=== PATIENT | female | born 1985 | race Caucasian/White ===

== ENCOUNTER → 2017-07-15 | Outpatient (REF) | payer BC | LOC: M LAB REF 16:57 | DX: L90.0 Lichen sclerosus et atrophicus (principal) | CPT/HCPCS: 87077 ==

== ENCOUNTER → 2017-08-01 | Outpatient (REF) | payer BC | LOC: M LAB REF 16:50 | DX: Z12.4 Encounter for screening for malignant neoplasm of cervix (principal) | CPT/HCPCS: G0123 ==

== ENCOUNTER → 2017-10-25 | Outpatient (CLI) | payer BC ==
[2017-10-25 07:30] LABS: HCG, SERUM QUANTITATIVE 147 MIU/ML
[2017-10-25 11:43] LABS: PROGESTERONE 10.5 NG/ML
== END ==
LOC: M LAB 06:28
DX: Z32.00 Encounter for pregnancy test, result unknown (principal)

== ENCOUNTER → 2017-10-28 | Outpatient (CLI) | payer BC ==
[2017-10-28 07:10] LABS: HCG, SERUM QUANTITATIVE 428 MIU/ML
== END ==
LOC: M LAB 06:20
DX: O09.02 Supervision of pregnancy with history of infertility, second trimester (principal); Z3A.00 Weeks of gestation of pregnancy not specified
CPT/HCPCS: 84702

== ENCOUNTER 2017-11-14 10:01 | Emergency (ER) | payer BC ==
[2017-11-14 10:54] LABS: BASO % 0.4 % (0.0-1.0); EOS # 0.2 10^3/uL (0.0-0.50); EOS % 2.4 % (0.0-3.0); HEMATOCRIT 39.5 % (36.0-47.0); HEMOGLOBIN 13.6 g/dl (12.0-15.5); IMMATURE GRANULOCYTE % 0.3 % (0-3.0); LYMPH # 2.3 10^3/uL (1.5-4.5); LYMPH % 31.1 % (24.0-44.0); MEAN CORPUSCULAR HEMOGLOBIN 29.8 pg (27.0-33.0); MEAN CORPUSCULAR HGB CONC 34.4 g/dl (32.0-36.5); MEAN CORPUSCULAR VOLUME 86.6 fl (80.0-96.0); MONO # 0.4 10^3/uL (0.0-0.8); MONO % 5.1 % (0.0-5.0); NEUTROPHILS # 4.5 10^3/uL (1.8-7.7); NEUTROPHILS % 60.7 % (36.0-66.0); PLATELET COUNT, AUTOMATED 227 10^3/uL (150-450); RED BLOOD COUNT 4.56 10^6/uL (4.00-5.40); WHITE BLOOD COUNT 7.4 10^3/uL (4.0-10.0)
[2017-11-14 11:08] LABS: KETONE, URINE AUTO RFX NEGATIVE (NEGATIVE); LEUKOCYTE ESTERASE UR AUTO RFX NEGATIVE (NEGATIVE); NITRITE, URINE AUTO RFX NEGATIVE (NEGATIVE); RBC, URINE AUTO RFX 7 /HPF (0-3); SPECIFIC GRAVITY UR AUTO RFX 1.006 (1.002-1.035); SQUAM EPITHELIAL CELL UR AURFX 1 /HPF (0-6); WBC, URINE AUTO RFX 3 /HPF (0-3)
[2017-11-14] MEDS: NS 1,000 ML IV (11:27)
[2017-11-14 11:34] LABS: HCG, SERUM QUANTITATIVE 15573 MIU/ML
== END 2017-11-14 12:21 | disposition home or self-care (01) ==
LOC: M ED 10:01
DX: O20.8 Other hemorrhage in early pregnancy (principal); Z3A.01 Less than 8 weeks gestation of pregnancy; Z79.890 Hormone replacement therapy; Z88.0 Allergy status to penicillin
CPT/HCPCS: 76801

== ENCOUNTER → 2017-11-15 | Outpatient (CLI) | payer BC ==
[2017-11-15 14:34] LABS: RUBELLA IgG QUALITATIVE IMMUNE (IMMUNE)
[2017-11-15 14:36] LABS: HBsAg Prenatal NEGATIVE (NEGATIVE)
[2017-11-15 15:03] LABS: HEPATITIS C VIRUS ABY INDEX 0.1 INDEX (<0.8)
[2017-11-15 15:04] LABS: HIV 1&2 SCREEN CENTAUR NEGATIVE (NEGATIVE)
[2017-11-15 15:37] LABS: BASO % 0.4 % (0.0-1.0); EOS # 0.1 10^3/uL (0.0-0.50); EOS % 1.5 % (0.0-3.0); HEMATOCRIT 41.8 % (36.0-47.0); IMMATURE GRANULOCYTE % 0.1 % (0-3.0); LYMPH # 1.9 10^3/uL (1.5-4.5); LYMPH % 28.1 % (24.0-44.0); MEAN CORPUSCULAR HEMOGLOBIN 29.5 pg (27.0-33.0); MEAN CORPUSCULAR HGB CONC 33.5 g/dl (32.0-36.5); MEAN CORPUSCULAR VOLUME 88.2 fl (80.0-96.0); MONO # 0.3 10^3/uL (0.0-0.8); MONO % 4.8 % (0.0-5.0); NEUTROPHILS # 4.5 10^3/uL (1.8-7.7); NEUTROPHILS % 65.1 % (36.0-66.0); PLATELET COUNT, AUTOMATED 283 10^3/uL (150-450); RED BLOOD COUNT 4.74 10^6/uL (4.00-5.40); RED CELL DISTRIBUTION WIDTH 12.1 % (11.5-14.5); WHITE BLOOD COUNT 6.9 10^3/uL (4.0-10.0)
[2017-11-15 15:57] LABS: CHLAMYDIA DNA AMPLIFICATION NEGATIVE (NEGATIVE); GC DNA AMPLIFICATION NEGATIVE (NEGATIVE)
== END ==
LOC: M SMT 10:52
DX: Z34.81 Encounter for supervision of other normal pregnancy, first trimester (principal); Z3A.01 Less than 8 weeks gestation of pregnancy
CPT/HCPCS: 86762

== ENCOUNTER → 2018-01-05 | Outpatient (REF) | payer BC | LOC: M LAB REF 11:14 | DX: J02.9 Acute pharyngitis, unspecified (principal) | CPT/HCPCS: 87070 ==

== ENCOUNTER → 2018-02-10 | Outpatient (CLI) | payer BC | LOC: M RAD 17:03 | DX: Z34.82 Encounter for supervision of other normal pregnancy, second trimester (principal); Z36.89 Encounter for other specified antenatal screening; Z3A.20 20 weeks gestation of pregnancy | CPT/HCPCS: 76811 ==

== ENCOUNTER → 2018-04-07 | Outpatient (CLI) | payer BC ==
[2018-04-07 13:17] LABS: BASO % 0.4 % (0.0-1.0); EOS # 0.2 10^3/uL (0.0-0.50); EOS % 1.9 % (0.0-3.0); HEMATOCRIT 36.6 % (36.0-47.0); HEMOGLOBIN 11.9 g/dl (12.0-15.5); IMMATURE GRANULOCYTE % 0.6 % (0-3.0); LYMPH # 1.6 10^3/uL (1.5-4.5); LYMPH % 19.6 % (24.0-44.0); MEAN CORPUSCULAR HEMOGLOBIN 30.4 pg (27.0-33.0); MEAN CORPUSCULAR HGB CONC 32.5 g/dl (32.0-36.5); MEAN CORPUSCULAR VOLUME 93.6 fl (80.0-96.0); MONO # 0.4 10^3/uL (0.0-0.8); MONO % 4.6 % (0.0-5.0); NEUTROPHILS # 5.9 10^3/uL (1.8-7.7); NEUTROPHILS % 72.9 % (36.0-66.0); PLATELET COUNT, AUTOMATED 245 10^3/uL (150-450); RED BLOOD COUNT 3.91 10^6/uL (4.00-5.40); RED CELL DISTRIBUTION WIDTH 13.3 % (11.5-14.5)
[2018-04-07 13:51] LABS: GLUCOSE CHALLENGE TEST 1 HOUR 92 MG/DL (LESS THAN 140)
== END ==
LOC: M SMT 08:51
DX: Z36.89 Encounter for other specified antenatal screening (principal)
CPT/HCPCS: 82950

== ENCOUNTER → 2018-06-06 | Outpatient (REF) | payer BC ==
[~2018-06-06] MED LIST: ENDO100S PV; ESTR1TAB PO
== END ==
LOC: M LAB REF 17:13
PROVIDERS: ATTEND Advanced Practice Midwife
DX: O09.813 Supervision of pregnancy resulting from assisted reproductive technology, third trimester (principal)

== ENCOUNTER → 2018-06-09 | Outpatient (CLI) | payer BC ==
[~2018-06-09] MED LIST changes: +PREN1TAB26 PO
--- NOTE | 2018-06-10 05:02 | REP ---
Clinical: Anatomical evaluation. Comparison: 02/10/2018 . Findings: Examination demonstrates a single live intrauterine in cephalic presentation. motion is identified by technologist. Placenta is noted left fundal and grade grade II without evidence for placenta previa or abruption. Amniotic fluid volume is normal. Cervix measures appears closed. No evidence for nuchal cord. Gestational age by LMP 36 weeks 3 days with F[place]ON 07/04/2018 . Gestational age by current measurements 37 weeks 5 days with F[place]ON 13 19 . FHR equals 165 beats per minute. Estimated weight 3500 grams ( 89th percentile). Umbilical cord SD ratio: 2.13. Anatomical assessment demonstrates small bilateral hydroceles. Impression: Single live intrauterine in cephalic presentation demonstrating appropriate interval growth. Small bilateral hydroceles are noted which may warrant follow-up to evaluate for possible inguinal hernia. Electronically Signed by Rogerio Richard MD 06/10/2018 04:53 A
== END ==
LOC: M RAD 17:12
PROVIDERS: ATTEND Obstetrics & Gynecology
DX: Z36.89 Encounter for other specified antenatal screening (principal); Z3A.36 36 weeks gestation of pregnancy

== ENCOUNTER 2018-06-27 07:00 | Inpatient (IN) | payer BC ==
[2018-06-27] VITALS (7 sets, daily range): BP systolic 89–128; BP diastolic 56–75
[~2018-06-27] VITALS: Ht 160 cm; Wt 70.5 kg
[2018-06-27] MEDS ORDERED: BICITRA 30ML SOLN UDC PO ONE (07:15)
[2018-06-27] MEDS ORDERED: LR 1,000 ML IV ONE (07:15)
[2018-06-27] MEDS ORDERED: LR 1,000 ML IV SCH ×2 (07:15→11:39)
[2018-06-27] MEDS ORDERED: COLA100C5 PO ×2 (07:19→11:24)
[2018-06-27 07:55] LABS: HEMATOCRIT 38.4 % (36.0-47.0); HEMOGLOBIN 13.2 g/dl (12.0-15.5); MEAN CORPUSCULAR HEMOGLOBIN 31.1 pg (27.0-33.0); MEAN CORPUSCULAR HGB CONC 34.4 g/dl (32.0-36.5); MEAN CORPUSCULAR VOLUME 90.6 fl (80.0-96.0); PLATELET COUNT, AUTOMATED 203 10^3/uL (150-450); RED BLOOD COUNT 4.24 10^6/uL (4.00-5.40); WHITE BLOOD COUNT 8.7 10^3/uL (4.0-10.0)
[2018-06-27] MEDS ORDERED: OXYTOCIN INJ 10 UNITS/ML VIAL (J2590) As Ordered ONE (08:51)
[2018-06-27] MEDS ORDERED: MORPHINE PRES-FREE INJ 10 MG/10 ML VIAL (J2274) As Ordered ONE (08:51)
[2018-06-27] MEDS ORDERED: BUPIVACAINE/DEXTROSE 0.75% 2 ML AMP As Ordered ONE (08:54)
[2018-06-27] MEDS ORDERED: MONI1CRE2 PV (08:57)
[2018-06-27] MEDS ORDERED: NALBUPHINE HCL 10 MG/ML AMP (J2300) IV PRN (09:45)
[2018-06-27] MEDS ORDERED: diphenhydrAMINE INJ 50MG/ML VIAL (J1200) IV PRN (09:45)
[2018-06-27] MEDS ORDERED: ONDANSETRON 4MG/2ML VIAL (J2405) IV PRN ×2 (09:45→11:45)
[2018-06-27] MEDS ORDERED: NALOXONE INJ 0.4 MG/1 ML VIAL (J2310) IV PRN ×2 (09:45)
[2018-06-27] MEDS ORDERED: METOCLOPRAMIDE INJ 10MG/2ML VIAL (J2765) IV PRN (09:45)
[2018-06-27] MEDS ORDERED: KETOROLAC 60 MG/2 ML VIAL (J1885) As Ordered ONE (10:18)
[2018-06-27] MEDS ORDERED: ONDANSETRON 4MG/2ML VIAL (J2405) As Ordered ONE (10:18)
[2018-06-27] MEDS ORDERED: fentaNYL 100 MCG/2 ML INJECTION (J3010) As Ordered ONE (10:26)
--- NOTE | 2018-06-27 11:05 | NUR ---
Operative Note Date of procedure: 06/27/2018 Procedure:, Primary low-transverse section Anesthesia: Spinal with Duramorph Preoperative diagnosis: 39 weeks gestation, history of severe obstetric laceration with protracted recovery Postoperative diagnosis: Same Indication: History of pelvic floor dysfunction after severe obstetric laceration. Patient elected primary low transverse section. Primary surgeon: Darrel Albert D.O., F[employer] Assistant: Kuldip Montes MD, FACOG (essential for surgical site exposure / assistance with delivery) Estimated blood loss:600 ml IV fluids administered: 1700 ml crystalloid Drains: Maier catheter. Urine output:100 ml [place] data: Apgars 9 and 9. Birthweight 3830g, 8lbs 7oz. Male. Preoperative/prophylactic antibiotics: Ancef 2 g IV (given within 30 minutes prior to surgical start time). Intraoperative findings: cephalic presentation. normal uterus and bilateral adnexa / ovaries. Specimen(s): none Procedure: The patient was counseled and consented on the risks, benefits, indications and alternatives of the procedure. Informed consent was obtained and placed in the c leal. She was taken to the operating room with an IV running. She was placed on the operating table. Spinal anesthesia was administered without any difficulty and found to be adequate. She was placed in the dorsal supine position with a leftward tilt. Sequential compression devices were placed on the lower extremities. A Maier catheter was placed under sterile conditions. She was sterilely prepped and draped. A surgical timeout was performed per protocol. Spinal anesthesia was again found to be adequate. Using the 10 blade a Pfannenstiel incision was performed. The 10 blade was used to dissect down to the level of the rectus sheath fascia. The rectus sheath fas ayad was incised at the midline, and the fascial incision was extended with Morse scissors. Joon clamps were used to grasp the superior and inferior aspect of the fascial incision and the rectus muscle bellies were dissected off sharply and bluntly. The midline was identified and the rectus muscle bellies were manually . The peritoneum was identified and clamped with hemostats and elevated. The peritoneum was then incised with Metzenbaum scissors. Entry into the intraperitoneal cavity was achieved. The peritoneal opening was extended with manual stretch . There was good visualization of both the bladder and the lower uterine segment. The bladder retractor was placed. The vesicouterine peritoneum was dissected with Metzenbaum scissors and blunt dissection. Bladder retractor was repositioned. A low transverse uterine incision was made with a new 10 blade. The hysterotomy was extended with manual stretch. The amniotic sac was protruding and then artificially ruptured. Clear amniotic fluid was noted. The baby's head delivered through the hysterotomy with ease. The remainder of the body delivered with ease. The cord was doubly clamped and cut and the baby was handed off to awaiting care. See data above. The placenta was manually removed and noted to be fully intact. The uterus was exteriorized. The intrauterine cavity was cleared of all clot and debris with a laparotomy sponge. The hysterotomy was closed with 0 Vicryl in running, locked fashion. A second imbricating closure was performed over the initial layer closure using 0 Vicryl. The hysterotomy was noted to be hemostatic. The posterior cul-de-sac was irrigated and cleared of all clot and debris. The uterus was replaced back into the abdomen. The paracolic gutters were cleared of all clot and debris with damp laparotomy sponges. The hysterotomy is reinspected and noted to be hemostatic. Sponge, needle and instrument counts were correct. The peritoneum was closed with 3-0 Vicryl in running fashion. The rectus muscle bellies were reapproximated with 3-0 Vicryl with a series of interrupted sutures. The rectus muscle bellies were noted to be hemostatic. The fascia was closed with 0 Vicryl in running fashion. Sponge, needle and instrument counts were again correct. The subcutaneous layer was irrigated. Small subcutaneous bleeders were cauterized with Bovie. The subcutaneous layer was reapproximated with 3-0 Vicryl in running fashion. The skin was closed with 3-0 Monocryl in subcuticular fashion. A bandage was placed over the closed incision. The final sponge, instrument and needle count was correct. She tolerated the entire procedure very well. She was transferred to the PACU in good and stable condition. Dr. Darrel Albert D.O., F.A.Nikita.Devyn.G
[2018-06-27] MEDS ORDERED: PERCOCET 5MG/325MG TAB PO PRN ×3 (11:15→11:45)
[2018-06-27] MEDS ORDERED: fentaNYL 100 MCG/2 ML INJECTION (J3010) IV PRN (11:15)
[2018-06-27] MEDS ORDERED: PERCOCET PO (11:22)
[2018-06-27] MEDS ORDERED: IBUP80TA PO (11:23)
[2018-06-27] MEDS ORDERED: OXYTOCIN DRIP 30 UNITS in APPROPRIATE DILUENT 1 EA IV SCH (11:39)
[2018-06-27] MEDS ORDERED: OXYTOCIN 30 UNITS IN 0.9% NaCl 500ML IV BAG (J2590) As Ordered ONE (11:40)
[2018-06-27] MEDS ORDERED: PROMETHAZINE 25 MG TAB PO PRN (11:45)
[2018-06-27] MEDS ORDERED: MEASLES,MUMPS,RUBELLA VACCINE INJ (MMR-II) (90707) SC SCH (11:45)
[2018-06-27] MEDS ORDERED: RHOGAM 300 MCG (1500 IU) INJ (J2790) IM SCH (11:45)
[2018-06-27] MEDS: PRENATAL VITAMINS CHEWABLE TABLET PO SCH (17:22)
[2018-06-27] MEDS: KETOROLAC 30 MG/ML VIAL (J1885) IV SCH ×2 (17:23→23:21)
[2018-06-27] MEDS: DOCUSATE SODIUM 100 MG CAP PO SCH (21:00)
[2018-06-28] VITALS (7 sets, daily range): BP systolic 98–115; BP diastolic 54–70
[2018-06-28] MEDS: KETOROLAC 30 MG/ML VIAL (J1885) IV SCH (05:12)
--- NOTE | 2018-06-28 06:47 | IPNPDOC ---
Text Note Date of Service The patient was seen on 06/28/18. NOTE PO #1 Feels well. Adequate pain management. . OOB independently. Voiding VSS, afebrile, normotensive Breasts soft, nipples intact Fundus firm Dressing intact Lochia rubra light without odor PO #1 Routine care. Anticipate D/C evelyn VS,Fishbone, I+O VS, Fishbone, I+O Laboratory Tests 06/27/18 07:46 Red Blood Count 4.24, Mean Corpuscular Volume 90.6, Mean Corpuscular Hemoglobin 31.1, Mean Corpuscular Hemoglobin Concent 34.4, Red Cell Distribution Width 13.0 Vital Signs Date Time Temp Pulse Resp B/P (MAP) Pulse Ox O2 Delivery O2 Flow Rate FiO2 06/28/18 06:10 97.9 66 18 103/62 (76) 95 I&O- Last 24 Hours up to 6 AM 06/28/18 06:00 Intake Total 3368 ml Output Total 1300 ml Balance 2068 ml Sharda Mcgovern CNM Jun 28, 2018 06:47
[2018-06-28 07:21] LABS: HEMATOCRIT 34.6 % (36.0-47.0); HEMOGLOBIN 11.6 g/dl (12.0-15.5); MEAN CORPUSCULAR HEMOGLOBIN 30.5 pg (27.0-33.0); MEAN CORPUSCULAR HGB CONC 33.5 g/dl (32.0-36.5); MEAN CORPUSCULAR VOLUME 91.1 fl (80.0-96.0); PLATELET COUNT, AUTOMATED 175 10^3/uL (150-450); WHITE BLOOD COUNT 11.5 10^3/uL (4.0-10.0)
[2018-06-28] MEDS: DOCUSATE SODIUM 100 MG CAP PO SCH ×2 (09:07→21:05)
[2018-06-28] MEDS: PRENATAL VITAMINS CHEWABLE TABLET PO SCH (09:07)
[2018-06-28] MEDS: IBUPROFEN 800 MG TAB PO SCH ×2 (12:55→21:05)
[2018-06-29 02:14] VITALS: BP_SYST 127; BP_SYST 91; BP_DIAS 56; BP_DIAS 72
[2018-06-29] MEDS: IBUPROFEN 800 MG TAB PO SCH (05:16)
[2018-06-29 05:50] VITALS: BP 108/60
[2018-06-29] MEDS: PRENATAL VITAMINS CHEWABLE TABLET PO SCH (09:00)
[2018-06-29] MEDS: DOCUSATE SODIUM 100 MG CAP PO SCH (09:00)
--- NOTE | 2018-06-30 04:00 | DSES ---
DATE OF ADMISSION: 06/27/2018 DATE OF DISCHARGE: 06/29/2018 DISCHARGE DIAGNOSIS: section for history of pelvic floor dysfunction with severe surgical laceration. DISCHARGE CONDITION: Stable. PROCEDURES PERFORMED WHILE IN HOSPITAL: 1. Spinal anesthesia. 2. section. HISTORY AND HOSPITAL COURSE: Ms. Goldman presented for a scheduled section which was uncomplicated and was productive of a live born male , Apgars 9 and 9, weight was 3830 grams. Estimated blood loss was 600 mL. She did well postoperatively. By postop day #2 had met all discharge criteria. She was discharged home in stable condition. Physical exam on day of discharge: Her vital signs are stable. She was afebrile. General appearance is well appearing in no acute distress. Her abdomen was soft, fundus was below umbilicus. Her incision was dressed. Extremities negative for calf tenderness. DISCHARGE MEDICATION: Ibuprofen and Percocet. DISCHARGE INSTRUCTIONS: 1. She was instructed to follow up in two weeks for incision check. 2. To remain on pelvic rest for six weeks. 3. To report severe pain, heavy vaginal bleeding or a fever.
== END 2018-06-29 11:30 | disposition home or self-care (01) | DRG 540 ==
LOC: M LDI 07:00 → M OBS 12:55
PROVIDERS: ADMIT Obstetrics & Gynecology; ATTEND Obstetrics & Gynecology
PROC: 10D00Z1 Extraction of Products of Conception, Low, Open Approach (ICD-10-PCS; principal; 2018-06-27 09:30)
DX: O99.89 Other specified diseases and conditions complicating pregnancy, childbirth and the puerperium (principal); N94.89 Other specified conditions associated with female genital organs and menstrual cycle; Z37.0 Single live birth; Z3A.39 39 weeks gestation of pregnancy

== ENCOUNTER → 2019-02-23 | Outpatient (CLI) | payer BC ==
[~2019-02-23] MED LIST changes: +COLA100C5 PO; +IBUP80TA PO; +MONI1CRE2 PV; +PERCOCET PO
[2019-02-26 14:07] LABS: HPV HYBRID CAPTURE II Negative (Negative)
== END ==
LOC: M SMT 15:42
PROVIDERS: ATTEND Advanced Practice Midwife
DX: Z12.4 Encounter for screening for malignant neoplasm of cervix (principal)
CPT/HCPCS: 36415; 87624; G0123

== ENCOUNTER → 2020-03-03 | Outpatient (REF) | payer BC | LOC: M SFHCWAGY 13:25 | PROVIDERS: ATTEND Nurse Practitioner Women's Health | DX: N89.8 Other specified noninflammatory disorders of vagina (principal) ==

== ENCOUNTER → 2020-03-15 | Outpatient (REF) | payer BC | LOC: M SFHCWAGY 17:42 | PROVIDERS: ATTEND Obstetrics & Gynecology | DX: Z12.4 Encounter for screening for malignant neoplasm of cervix (principal) ==

== ENCOUNTER → 2020-05-16 | Outpatient (CLI) | payer BC | LOC: M LAB 08:04 | PROVIDERS: ATTEND Obstetrics & Gynecology | DX: Z32.00 Encounter for pregnancy test, result unknown (principal) ==

== ENCOUNTER → 2020-05-18 | Outpatient (CLI) | payer BC ==
[2020-05-18 14:51] LABS: PROGESTERONE 85.3 NG/ML
== END ==
LOC: M LAB 05:57
PROVIDERS: ATTEND Obstetrics & Gynecology
DX: Z31.49 Encounter for other procreative investigation and testing (principal); O09.00 Supervision of pregnancy with history of infertility, unspecified trimester; Z3A.00 Weeks of gestation of pregnancy not specified

== ENCOUNTER → 2020-07-03 | Outpatient (CLI) | payer BC ==
[2020-07-03 09:33] LABS: HEMATOCRIT 36.8 % (36.0-47.0); HEMOGLOBIN 12.3 g/dl (12.0-15.5); MEAN CORPUSCULAR HEMOGLOBIN 30.4 pg (27.0-33.0); MEAN CORPUSCULAR HGB CONC 33.4 g/dl (32.0-36.5); MEAN CORPUSCULAR VOLUME 90.9 fl (80.0-96.0); PLATELET COUNT, AUTOMATED 279 10^3/uL (150-450); RED BLOOD COUNT 4.05 10^6/uL (4.00-5.40); WHITE BLOOD COUNT 8.1 10^3/uL (4.0-10.0)
[2020-07-04 11:16] LABS: HEPATITIS C VIRUS ABY INDEX 0.1 INDEX (<0.8); HIV 1&2 SCREEN CENTAUR NEGATIVE (NEGATIVE)
== END ==
LOC: M LAB 08:40
PROVIDERS: ATTEND Advanced Practice Midwife
DX: Z34.91 Encounter for supervision of normal pregnancy, unspecified, first trimester (principal); Z3A.00 Weeks of gestation of pregnancy not specified

== ENCOUNTER 2020-07-22 16:31 | Emergency (ER) | payer BC ==
[~2020-07-22] VITALS: Ht 162.6 cm; Wt 55.1 kg
--- OUTSIDE RECORDS SUMMARY | 2020-07-22 16:37 | CCD | Continuity of Care Document ---
Author Author China HAYDEN D.Dorcas Organization Unknown Address [address] [place] [address] Phone [phone] Care Team Providers Care Woods Boss Name Role Phone Vandana Hayden D.O. AUTM [phone] Problems Description No Information Available Social History Type Date Description Comments Sex Unknown ETOH Use Drinks 2 Alcoholic Beverages Per Week Tobacco Use Start: Unknown Patient has never smoked Recreational Drug Use Denies Drug Use Exercise Type/Frequency Walks daily Sun Exposure Uses sunscreen Seat Belt/Car Seat Always uses seat belt Allergies, Adverse Reactions, Alerts Active Allergies Reaction Severity Comments Date Amoxicillin Urticaria 07/31/2017 Medications Active Medications SIG Qnty Indications Ordering Provide r Date Plus 27-1mg Tablets 1 by mouth every day 90tabs Vandana Hayden D.O. 08/01 Immunizations Description No Information Available Vital Signs Date Vital Result Comment 12/07/2019 2:23pm BP Systolic 106 mmHg BP Diastolic 64 mmHg Height 64 inches 5'4" Weight 113.00 lb BMI (Body Mass Index) 19.4 kg/m2 Heart Rate 85 /min Respiratory Rate 18 /min Body Temperature 99.3 F O2 % BldC Oximetry 99 % [place] Body Weight 120 lb 08/01/2017 9:14am BP Systolic 104 mmHg BP Diastolic 78 mmHg Height 64 inches 5'4" Weight 121.25 lb BMI (Body Mass Index) 20.8 kg/m2 Heart Rate 86 /min Respiratory Rate 16 /min Body Temperature 98.3 F O2 % BldC Oximetry 98 % [place] Body Weight 120 lb Results Test Acquired Date Facility Test Result H/L Range Note Laboratory test finding 05/18/2020 [facility] (Registration) [address] [place] [address] [phone] Progesterone 85.30 NG/ML Normal 1 HCG, Serum Quantitative 144 MIU/ML Normal 2 Laboratory test finding 05/16/2020 [facility] (Registration) [address] [place] [address] [phone] HCG, Serum Quantitative 68 MIU/ML Normal 3 1 Normal Ranges (ng/ml) Females : FOLLICULAR PHASE 0.15-1.40 LUTEAL PHASE 3.34-25.56 MID-LUTEAL PHASE 4.44-28.03 POST MENOPAUSAL <0.73 Females : 1st TRIMESTER 11.22-90.00 2nd TRIMESTER 25.55-89.40 3rd TRIMESTER 48.40-422.50 2 GESTATIONAL AGE APPROXIMATE HCG RANGE (MIU/ML) - 0.2-1 WEEK 5-50 1-2 WEEKS 50-500 2-3 WEEKS 100-5,000 3-4 WEEKS 500-10,000 4-5 WEEKS 1,000-50,000 5-6 WEEKS 10,000-100,000 6-8 WEEKS 15,000-200,000 2-3 MONTHS 10,000-100,00 0 NON FEMALES LESS THAN 3.0 Patient samples may contain human heterophilic antibodies that could react with immunoassays to give falsely elevated or depressed results. This assay has been designed to minimize interference from heterophilic antibodies. Elevated hCG levels have also been associated with trophoblastic disease and nontrophoblastic neoplasms. The possibility of having these diseases should be considered before a diagnosis of is made. This test is not intended for use as a surrogate marker for aiding in the diagnosis or monitoring the treatment of cancer patients. Siemens Plickers methodology. 3 GESTATIONAL AGE APPROXIMATE HCG RANGE (MIU/ML) - 0.2-1 WEEK 5-50 1-2 WEEKS 50-500 2-3 WEEKS 100-5,000 3-4 WEEKS 500-10,000 4-5 WEEKS 1,000-50,000 5-6 WEEKS 10,000-100,000 6-8 WEEKS 15,000-200,000 2-3 MONTHS 10,000-100,00 0 NON FEMALES LESS THAN 3.0 Patient samples may contain human heterophilic antibodies that could react with immunoassays to give falsely elevated or depressed results. This assay has been designed to minimize interference from heterophilic antibodies. Elevated hCG levels have also been associated with trophoblastic disease and nontrophoblastic neoplasms. The possibility of having these diseases should be considered before a diagnosis of is made. This test is not intended for use as a surrogate marker for aiding in the diagnosis or monitoring the treatment of cancer patients. Siemens Plickers methodology. Procedures Description No Information Available Medical Devices Description No Information Available Encounters Type Date Location Provider Dx Diagnosis Office Visit 12/07/2019 2:20p Family Medicine [facility] JEEVAN Mayen J06.9 Acute upper respiratory infe ction, unspecified Assessments Date Code Description Provider 12/07/2019 J06.9 Acute upper respiratory infectio n, unspecified JEEVAN Mayen Plan of Treatment No Information Available Functional Status Description No Information Available Mental Status Description No Information Available Referrals Description No Information Available
--- OUTSIDE RECORDS SUMMARY | 2020-07-22 16:37 | CCD ---
Author Author [facility] Organization [facility] Address Unknown Phone Unavailable Care Team Providers Care Java Development Team Lead Name Role Phone David Michael PA Unavailable Unavailable David, Michael PA Unavailable Unavailable David, Michael PA Unavailable Unavailable David, Michael PA Unavailable Unavailable David, Michael PA Unavailable Unavailable David, Michael PA Unavailable Unavailable David, Michael PA Unavailable Unavailable David, Michael PA Unavailable Unavailable David, Michael PA Unavailable Unavailable David, Michael PA Unavailable Unavailable David, Michael PA Unavailable Unavailable David, Michael PA Unavailable Unavailable David, Michael PA Unavailable Unavailable David, Michael PA Unavailable Unavailable David, Micheal PA Unavailable Unavailable David, Michael PA Unavailable Unavailable David, Michael PA Unavailable Unavailable David, Michael PA Unavailable Unavailable David, Michael PA Unavailable Unavailable David, Michael PA Unavailable Unavailable David, Michael PA Unavailable Unavailable David, Michael PA Unavailable Unavailable David, Michael PA Unavailable Unavailable David, Michael PA Unavailable Unavailable David, Michael PA Unavailable Unavailable David, Michael PA Unavailable Unavailable David, Michael PA Unavailable Unavailable David, Michael PA Unavailable Unavailable David, Michael PA Unavailable Unavailable David, Michael PA Unavailable Unavailable David, Michael PA Unavailable Unavailable David, Michael PA Unavailable Unavailable David, Michael PA Unavailable Unavailable David, Michael PA Unavailable Unavailable David, Michael PA Unavailable Unavailable David, Michael PA Unavailable Unavailable David, Michael PA Unavailable Unavailable David, Michael PA Unavailable Unavailable David, Michael PA Unavailable Unavailable David, Michael PA Unavailable Unavailable David, Michael PA Unavailable Unavailable David, Michael PA Unavailable Unavailable David, Michael PA Unavailable Unavailable David, Michael PA Unavailable Unavailable David, Michael PA Unavailable Unavailable David, Michael PA Unavailable Unavailable David, Michael PA Unavailable Unavailable David, Michael PA Unavailable Unavailable David, Michael PA Unavailable Unavailable Campanaro, Mare Angy PA Unavailable Unavailable Campanaro, Mare Angy PA Unavailable Unavailable Campanaro, Mare Angy PA Unavailable Unavailable Campanaro, Mare Angy PA Unavailable Unavailable Campanaro, Mare Angy PA Unavailable Unavailable Campanaro, Mare Angy PA Unavailable Unavailable Campanaro, Mare Angy PA Unavailable Unavailable Campanaro, Mare Angy PA Unavailable Unavailable Campanaro, Mare Angy PA Unavailable Unavailable Campanaro, Mare Angy PA Unavailable Unavailable Campanaro, Mare Angy PA Unavailable Unavailable Campanaro, Mare Angy PA Unavailable Unavailable Campanaro, Mare Angy PA Unavailable Unavailable Campanaro, Mare Angy PA Unavailable Unavailable Campanaro, Mare Angy PA Unavailable Unavailable Campanaro, Mare Angy PA Unavailable Unavailable Campanaro, Mare Angy PA Unavailable Unavailable Campanaro, Mare Angy PA Unavailable Unavailable Re-disclosure Warning The records that you are about to access may contain information from federally-assisted alcohol or drug abuse programs. If such information is present, then the following federally mandated warning applies: This information has been disclosed to you from records protected by federal confidentiality rules (42 CFR part 2). The federal rules prohibit you from making any further disclosure of this information unless further disclosure is expressly permitted by the written consent of the person to whom it pertains or as otherwise permitted by 42 CFR part 2. A general authorization for the release of medical or other information is NOT sufficient for this purpose. The Federal rules restrict any use of the information to criminally investigate or prosecute any alcohol or drug abuse patient.The records that you are about to access may contain highly sensitive health information, the redisclosure of which is protected by Article 27-F of the [facility] Public Health law. If you continue you may have access to information: Regarding HIV / AIDS; Provided by facilities licensed or operated by the [facility] Office of Mental Health; or Provided by the [facility] Office for People With Developmental Disabilities. If such information is present, then the following [facility] mandated warning applies: This information has been disclosed to you from confidential records which are protected by state law. State law prohibits you from making any further disclosure of this information without the specific written consent of the person to whom it pertains, or as otherwise permitted by law. Any unauthorized further disclosure in violation of state law may result in a fine or halfway sentence or both. A general authorization for the release of medical or other information is NOT sufficient authorization for further disc losure. Family History Family Member Name Family Member Gender Family Member Status Date o f Status Description Data Source(s) Unknown Unknown Problem [facility] Unknown Male Problem MEDENT ([facility]) Unknown Male Problem MEDENT ([facility]) Encounters Encounter Providers Location Date Indications Data Source(s ) ( ESTOB) [facility] OB [address] [place] [address] 06/24/2020 12:00:00 AM EST eCW1 ([facility]) Outpatient [address] [facility] [address] 05/17/2020 12:00:00 AM EST eCW1 ([facility]) Outpatient [address] [facility] [address] 03/15/2020 12:00:00 AM EDT eCW1 ([facility]) [place] [address] [facility] [address] 03/03/2020 12:00:00 AM EDT eCW1 ([facility]) [facility] D[facility] [address] [place] [address] 02/26/2020 12:00:00 AM EDT eCW1 ([facility]) Unknown [address] [facility] [address] 12/15/2019 12:00:00 AM EDT eCW1 ([facility]) Outpatient Attender: Michael CHEW [facility] 12/07/2019 02:20:00 PM EDT MEDENT ([facility]) Outpatient Attender: Angy diehl 06/09/2019 03:35:00 PM EST MEDENT ([facility]) Immunizations Vaccine Date Status Description Data Source(s) INFLUENZA VIRUS VACCINE QUADRIVAL (6 MOS AND UP)/PF 03/21/2020 12:00:00 AM EDT completed [facility] Medications Medication Brand Name Start Date Product Form Dose Route Admi nistrative Instructions Pharmacy Instructions Status Indications Reaction Description Data Source(s) 2.5 mg 04/12/2020 12:00:00 AM EST tablet 10 TAKE TWO TABLETS BY MOUTH EVERY DAY FOR 5 DAYS WHEN DIRECTED TAKE TWO TABLETS BY MOUTH EVERY DAY FOR 5 DAYS WHEN DIRECTED SOLD: 04/13/2020 [facility] doxycycline hyclate 100 MG Oral Tablet DOXYCYCLINE HYCLATE 0 02/11/2020 12:00:00 AM EDT tablet 28 TAKE ONE TABLET BY MOUTH TWO TIMES A DAY FOR 14 DAYS TAKE ONE TABLET BY MOUTH TWO TIMES A DAY FOR 14 DAYS SOLD: 02/11/2020 [facility] 0.05 % 02/05/2020 12:00:00 AM EDT ointment 60 APPLY TWO TIMES A DAY TO AFFECTED AREA(S) APPLY TWO TIMES A DAY TO AFFECTED AREA(S) SOLD: 02/11/2020 [facility] Metronidazole 0.01 MG/MG Topical Gel [MetroGel] Metrogel 1 % Metrogel 1 % 12/18/2019 12:00:00 AM EDT 1.0 {application} active Metrogel 1 % eCW1 ([facility]) Metronidazole 0.01 MG/MG Topical Gel [MetroGel] Metrogel 1 % Metrogel 1 % 12/18/2019 12:00:00 AM EDT 1.0 {application} suspend ed Metrogel 1 % eCW1 ([facility]) Metronidazole 0.01 MG/MG Topical Gel [MetroGel] Metrogel 1 % Metrogel 1 % 12/18/2019 12:00:00 AM EDT 1.0 {application} suspend ed Metrogel 1 % eCW1 ([facility]) Metronidazole 0.01 MG/MG Topical Gel [MetroGel] Metrogel 1 % Metrogel 1 % 12/18/2019 12:00:00 AM EDT 1.0 {application} suspend ed Metrogel 1 % eCW1 ([facility]) Metronidazole 0.01 MG/MG Topical Gel [MetroGel] Metrogel 1 % Metrogel 1 % 12/18/2019 12:00:00 AM EDT 1.0 {application} suspend ed Metrogel 1 % eCW1 ([facility]) 0.75 % 12/15/2019 12:00:00 AM EDT gel 70 INSERT ONE APPLICATION VAGINALLY ONCE DAILY FOR 5 DAYS INSERT ONE APPLICATION VAGINALLY ONCE DAILY FOR 5 DAYS SOLD: 12/15/2019 [facility] Metronidazole 500 MG Oral Tablet METRONIDAZOLE 12/14/2019 12:0 0:00 AM EDT tablet 14 TAKE ONE TABLET BY MOUTH TWICE A DAY FOR 7 DAYS TAKE ONE TABLET BY MOUTH TWICE A DAY FOR 7 DAYS SOLD: 12/14/2019 [facility] Insurance Providers Payer name Policy type / Coverage type Policy ID Covered libertarian ID Covered libertarian's relationship to seo Policy Seo Plan Information [employer]BS FEDERAL EMPLOYEE PROGRAM [id number] SP [id number] BS FEDERAL EMPLOYEE PROGRAM [id number] SP [id number] [facility] [place] [facility] PPO 302/307 [id number] SP [id number] [facility] FEDERAL EMPLOYEE PROGRAM [id number] SP [id number] [facility] Federal Plan Commercial [id number] Self [id number] [employer] Health Maintenance Organization (HMO) [id number] Self [id number] [facility] C [id number] Self [id number] [place] FED[place] B [id number] S [id number] [facility] Federal Plan Commercial [id number] Self R [id number] Federal Plan Commercial [id number] Self R [id number] [facility] FEDERAL EMPLOYEE PROGRAM [id number] SP [id number] [facility] UNAVAILABLE 18 UNAVAILABLE [employer] HEA [id number] S [id number] BS Federal Commercial [id number] Self [id number] [place] BS Health Maintenance Organization (HMO) [id number] Self [id number] [facility] Federal Plan Commercial [id number] Self R [id number] [facility] Federal Plan Commercial [id number] Self R [id number] Problems, Conditions, and Diagnoses Code Display Name Description Problem Type Effective Dates Data Source(s) Z34.80 care Supervision of other normal P bereniceclint 06/17/2020 12:00:00 AM EST eCW1 ([facility]) Results ID Date Data Source [id number] 07/03/2020 08:55:00 AM EST MEDENT ([facility]) Name Value Range Interpretation Code Description Data Venita rce(s) Supporting Document(s) Hepatitis C virus Ab [Units/volume] in Serum by Immunoassay 0.1 INDEX Normal (applies to non-numeric results) MEDENT ([facility]) Negative Not infected with HCV, unless recent infection is suspected or other evidence exists to indicate HCV infection. Hepatitis B virus surface Ag [Presence] in Serum or Pl asma by Immunoassay Laboratory test result Normal (applies to non-numeric results) MEDENT ([facility]) Reagin Ab [Presence] in Serum by RPR Laboratory test result Normal (applies to non-numeric results) [facility]) HIV 1+2 Ab [Presence] in Serum Laboratory test result Normal (applies to non- numeric results) [facility] ([facility]) <content>This assay was performed utiliz ing a chemiluminescent</content>
<content>principle technique for the simultaneous qualitative</content>
<content>detection of HIV-1 p24 antigen & antibodies to HIV-1</content>
<content>(including group O) & HIV-2 using the Siemens Centaur XP</content>
<content>system.</content>
<content>The estimated 95% confidence interval for sensitivity of</content>
<content>this antigen/antibody combination assay for HIV-1&2</content>
<content>antibodies is 99.7-100% and HIV p24 antigen is 89.4-99.9%.</content>
<content>The estimated 95% confidence interval for specificity of</content>
<content>this antigen/antibody combination in low risk populations is</content>
<content>99.6-99.8%.</content>
<content></content> Rubella virus IgG Ab [Units/volume] in Serum or Plasma by Immunoassay Laboratory test result Normal (applies to non-numeric results) [facility] ([facility]) THE RUBELLA RESULT WAS OBTAINED WITH THE CENTAUR RUBELLA IGG ASSAY. IgG VALUES FROM ANOTHER MANUFACTURERS' METHOD MAY NOT BE USED INTERCHANGEABLY. MAGNITUDE OF LEVEL CANNOT BE CORRELATED TO AN ENDPOINT TITER. SUSCEPTIBLE 0.00-5.00 IU/ML EQUIVOCAL 5.01-9.99 IU/ML IMMUNE > 10.00 IU/ML Bacteria identified in Urine by Culture Laboratory test result Normal (applies to non-numeric results) [facility] ([facility]) FULL REPORT IN LAB NOTES (eCW and [facility] ). ORGANISM 1: LACTOBACILLUS SPECIES COLONY COUNT 100,000 Most Lactobacillus species recovered from clinical specimens are rarely pathogenic. Penicillin or ampicillin with or without gentamicin is recommended for treatment. Clindamycin and erythromycin are alternative treatments. Vancomycin resistance has been reported. ORGANISM 1: LACTOBACILLUS SPECIES ID Date Data Source [id number] 07/03/2020 08:55:00 AM EST [facility] ([facility]) Name Value Range Interpretation Code Description Data Venita rce(s) Supporting Document(s) AB Screen PNP1 Gel (Vis) Laboratory test result Normal (applies to non- numeric results) [facility] ([facility]) Blood Type Laboratory test result Normal (applies to non-n umeric results) [facility] ([facility]) ID Date Data Source [id number] 07/03/2020 08:55:00 AM EST MEDENT ([facility]) Name Value Range Interpretation Code Description Data Venita rce(s) Supporting Document(s) White Blood Count 8.1 10 4.0-10.0 Normal (applies to non-numeri c results) MEDENT ([facility]) Red Blood Count 4.05 10 4.00-5.40 Normal (applies to non-numeric results) [facility] ([facility]) Mean Corpuscular Volume 90.9 fl 80.0-96.0 Normal ( applies to non-numeric results) [facility] ([facility]) Hematocrit 36.8 % 36.0-47.0 Normal (applies to non-numeric resul ts) [facility] ([facility]) Hemoglobin 12.3 g/dL 12.0-15.5 Normal (applies to non-numeric resul ts) [facility] ([facility]) Mean Corpuscular Hemoglobin 30.4 pg 27.0-33.0 Norm al (applies to non-numeric results) [facility] ([facility]) Red Cell Distribution Width 12.9 % 11.5-14.5 Norm al (applies to non-numeric results) [facility] ([facility]) Mean Corpuscular HGB Conc 33.4 g/dL 32.0-36.5 Normal (applies to non-numeric results) [facility] ([facility]) Nucleated Red Blood Cell % 0.0 % 0-0 Normal (applies to n on-numeric results) [facility] ([facility]) Platelet Count, Automated 279 10 150-450 Normal (applies to non-numeric results) [facility] ([facility]) ID Date Data Source [id number] 05/18/2020 06:15:00 AM EST MEDENT ([facility]) Name Value Range Interpretation Code Description Data Venita rce(s) Supporting Document(s) Choriogonadotropin.beta subunit [Moles/volume] in Serum or Plasm a 144 MIU/ML Normal (applies to non-numeric results) MED[facility] ([facility]) GESTATIONAL AGE APPROXIMATE HCG RANGE (MIU/ML) - [...] monitoring the treatment of cancer patients. Siemens Wickr methodology. Progesterone [Mass/volume] in Serum or Plasma 85.30 ng/mL Normal (applies to non-numeric results) [facility] ([facility]) <content>Normal Ranges (ng/ml)</content>
<content>Females :</content>
<content>FOLLICULAR PHASE 0.15- 1.40</content>
<content>LUTEAL PHASE 3.34-25.56</content>
<content>MID-LUTEAL PHASE 4.44- 28.03</content>
<content>POST MENOPAUSAL <0.73</content>
<content></content>
<content> Females :</content>
<content>1st TRIMESTER 11.22- 90.00</content>
<content>2nd TRIMESTER 25.55- 89.40</content>
<content>3rd TRIMESTER 48.40-422.50</content>
<content></content> ID Date Data Source [id number] 05/16/2020 08:18:00 AM EST [facility] ([facility]) Name Value Range Interpretation Code Description Data Venita rce(s) Supporting Document(s) Choriogonadotropin.beta subunit [Moles/volume] in Serum or Plasm a 68 MIU/ML Normal (applies to non-numeric results) MEDELSIE ([facility]) GESTATIONAL AGE APPROXIMATE HCG RANGE (MIU/ML) - [...] monitoring the treatment of cancer patients. Siemens Hinckley methodology. ID Date Data Source PAP REQUEST FOR SERVICE 03/17/2020 04:37:47 AM EDT eCW1 ([facility]) Name Value Range Interpretation Code Description Data Venita rce(s) Supporting Document(s) PAP REQUEST FOR SERVICE eCW1 ( [facility]) ID Date Data Source GENITAL CULTURE 03/07/2020 03:14:27 AM EDT eCW1 ([facility]) Name Value Range Interpretation Code Description Data Venita rce(s) Supporting Document(s) GENITAL CULTURE eCW1 ([facility]) ID Date Data Source WET PREP 03/03/2020 01:21:38 PM EDT eCW1 ([facility]) Name Value Range Interpretation Code Description Data Venita rce(s) Supporting Document(s) 4.5 PH eCW1 ([facility]) neg whiff eCW1 ([facility]) neg Clue Cells eCW1 ([facility]) WET PREP eCW1 ([facility]) neg Hypae eCW1 ([facility]) neg Lactobacillus eCW1 ([facility]) neg Trichomoniads eCW1 ([facility]) neg WBC eCW1 ([facility]) neg RBC eCW1 ([facility]) Procedure Social History Code Duration Value Status Description Data Source(s ) Smoking 06/24/2020 12:00:00 AM EST Never Smoker completed Never S moker eCW1 ([facility]) Smoking 05/17/2020 12:00:00 AM EST Never Smoker completed Never S moker eCW1 ([facility]) Smoking 03/15/2020 12:00:00 AM EDT Never Smoker completed Never S moker eCW1 ([facility]) Smoking 03/03/2020 12:00:00 AM EDT Never Smoker completed Never S moker eCW1 ([facility]) Vital Signs ID Date Data Source UNK Name Value Range Interpretation Code Description Data Source(s) Diastolic blood pressure 72 mm[Hg] 72 mm[Hg] eCW1 ([facility]) Systolic blood pressure 108 mm[Hg] 108 mm[Hg] e CW1 ([facility]) Body mass index (BMI) [Ratio] 19.946 kg/m2 19.9 46 kg/m2 [facility] ([facility]) Body height 64 [in_i] 64 [in_i] eCW1 ([facility]) Body weight 52.71 kg 52.71 kg W1 ([facility]) Body weight 116.2 [lb_av] 116.2 [lb_av] eCW1 ([facility] Diastolic blood pressure 70 mm[Hg] 70 mm[Hg] eCW1 ([facility]) Systolic blood pressure 122 mm[Hg] 122 mm[Hg] e CW1 ([facility]) Body mass index (BMI) [Ratio] 19.57 kg/m2 19.57 kg/m2 W1 ([facility]) Body height 64 [in_i] 64 [in_i] eCW1 ([facility]) Body weight 114 [lb_av] 114 [lb_av] eCW1 ([facility]) Diastolic blood pressure 80 mm[Hg] 80 mm[Hg] eCW1 ([facility]) Systolic blood pressure 108 mm[Hg] 108 mm[Hg] e CW1 ([facility]) Body mass index (BMI) [Ratio] 19.81 kg/m2 19.81 kg/m2 W1 ([facility]) Body height 64 [in_i] 64 [in_i] eCW1 ([facility]) Body weight 52.34 kg 52.34 kg eCW1 ([facility]) Body weight 115.4 [lb_av] 115.4 [lb_av] eCW1 ([facility]) Diastolic blood pressure 70 mm[Hg] 70 mm[Hg] eCW1 ([facility]) Systolic blood pressure 108 mm[Hg] 108 mm[Hg] e CW1 ([facility]) Body mass index (BMI) [Ratio] 19.91 kg/m2 19.91 kg/m2 W1 ([facility]) Body height 64 [in_i] 64 [in_i] eCW1 ([facility]) Body weight 52.62 kg 52.62 kg W1 ([facility]) Body weight 116 [lb_av] 116 [lb_av] eCW1 ([facility]) Yulan body weight 120 [lb_av] 120 [lb_av] MEDEN T ([facility]) Oxygen saturation in Arterial blood by Pulse oximetry 99 % 99 % MEDENT ([facility]) Body temperature 99.3 [degF] 99.3 [degF] MEDENT ([facility]) Respiratory rate 18 /min 18 /min MEDENT ( [facility]) Heart rate 85 /min 85 /min MEDENT ([facility]) Body mass index (BMI) [Ratio] 19.4 kg/m2 19.4 k g/m2 MEDENT ([facility]) Body weight 113.00 [lb_av] 113.00 [lb_av] MEDEN T ([facility]) Body height 64 [in_i] 64 [in_i] MEDENT ([facility]) 5'4" Diastolic blood pressure 64 mm[Hg] 64 mm[Hg] [facility]) Systolic blood pressure 106 mm[Hg] 106 mm[Hg] M EDENT ([facility]) Body mass index (BMI) [Ratio] 19.7 kg/m2 19.7 k g/m2 MEDENT ([facility]) Body height 64 [in_i] 64 [in_i] MEDENT ([facility]) 5'4" Body weight 115.00 [lb_av] 115.00 [lb_av] MEDEN T ([facility], [facility]) Body temperature 99.3 [degF] 99.3 [degF] [facility] ([facility]) Oxygen saturation in Arterial blood by Pulse oximetry 98 % 98 % [facility] ([facility]) Respiratory rate 16 /min 16 /min [facility] ( [facility]) Heart rate 96 /min 96 /min [facility] ([facility]) Diastolic blood pressure 73 mm[Hg] 73 mm[Hg] [facility] ([facility]) Systolic blood pressure 107 mm[Hg] 107 mm[Hg] [facility]) Patient Treatment Plan of Care Planned Activity Planned Date Details Description Data Source (s) Metronidazole 0.01 MG/MG Topical Gel [MetroGel] 12/18/2019 12:00:00 AM EDT eCW1 ([facility])
--- OUTSIDE RECORDS SUMMARY | 2020-07-22 16:37 | CCD ---
Author Author [facility] Organization [facility] Address Unknown Phone Unavailable Care Team Providers Care Utilities Estimator And Drafter Name Role Phone Albert, Darrel Unavailable PROBLEMS No Information ALLERGIES Allergen (clinical drug ingredient) Drug/Non Drug Allergy do cumented on EMR Reaction Allergy Type Onset Date Status amoxicillin Amoxicillin([facility] Code:[address]-97) Unknown Drug Aller gy Active ENCOUNTERS from 1985 to 2020-05-25 Encounter Location Date Provider Diagnosis [facility] [address] [place] [id number] Apr, Darrel Albert Lichen sclerosus et atrophicus of the vulva N90.4 IMMUNIZATIONS No Information SOCIAL HISTORY Tobacco Use: Social History Observation Description Date Details (start date - stop date) Never Smoker Sex Assigned At : Social History Observation Description Sex Assigned At Unknown Alcohol Screening: Question Answer Notes Did you have a drink containing alcohol in the past year? Ye s Points 2 Interpretation Negative How often did you have six or more drinks on one occas ion in the past year? Never (0 points) How many drinks did you have on a typica l day when you were drinking in the past year? 1 or 2 (0 points) How often did you have a drink containing alcohol in t he past year? Two to four times a month (2 points) Tobacco Use: Question Answer Notes Are you a: never smoker REASON FOR REFERRAL No Information VITAL SIGNS Weight 114 lbs Apr, Height 64 in Apr, BMI 19.57 kg/m2 Apr, Blood pressure systolic 122 mm Hg Apr, Blood pressure diastolic 70 mm Hg Apr, MEDICATIONS Medication SIG (Take, Route, Frequency, Duration) Notes Start Da te End Date Status Aspirin 81 81 MG 1 tablet Orally Once a day Active Vitamin D 50 MCG (1999) 1 tablet Orally Once a day Active 28-0.8 MG 1 tablet Orally Once a day Active Metrogel 1 % 1 application Externally Once a day Nov, 2 020 Not-Taking Clobetasol Propionate 0.05 % 1 application Externally Twice a day Active Clobetasol Propionate 0.05 % 1 application to affected area Externally Twice a day for 10 day(s) Not-Taking PROCEDURES No Information RESULTS No Results REASON FOR VISIT infection check MEDICAL (GENERAL) HISTORY Type Description Date Medical History lichen sclerosis Surgical History 2019 Hospitalization History childbirth Goals Section No Information Health Concerns No Information MEDICAL EQUIPMENT No Information MENTAL STATUS No Information FUNCTIONAL STATUS No Information ASSESSMENTS Encounter Date Diagnosis Assessment Notes Treatment Notes Treatm ent Clinical Notes Apr, Lichen sclerosus et atrophicus of the vulva (ICD -10 - N90.4) No evidence of infection/candidiasis or vaginosis on exam today. Si/sx and physical exam findings most c/w lichen sclerosis. Recommend continuing with daily Clobetasol. PLAN OF TREATMENT Treatment Notes Assessment Notes Clinical Notes Lichen sclerosus et atrophicus of the vulva No evidence of infection/candidiasis or vaginosis on exam today. Si/sx and physical exam findings most c/w lichen sclerosis. Recommend continuing with daily Clobetasol. Next Appt Details 4 Weeks Reason:follow-up Follow Up:4 Weeksfollow-up Insurance Providers Payer Name Payer Address Payer Phone Insured Name Patient Relati onship to Insured Coverage Start Date Coverage End Date JOHANA WATTS PPO [phone] [facility] [employer] [place] [address] [place]ORZ[place] CARUSO self
--- OUTSIDE RECORDS SUMMARY | 2020-07-22 16:37 | CCD | Continuity of Care Document ---
Author Organization Unknown Address Unknown Phone Unavailable Care Team Providers Care Manager Internal Name Role Phone Vandana Hayden D.O. AUTM Problems Description No Information Available Social History [...] F O2 % BldC Oximetry 99 % [place] Body Weight 120 lb 08/01/2017 9:14am BP Systolic 104 mmHg BP Diastolic 78 mmHg Height 64 inches 5'4" Weight 121.25 lb BMI (Body Mass Index) 20.8 kg/m2 Heart Rate 86 /min Respiratory Rate 16 /min Body Temperature 98.3 F O2 % BldC Oximetry 98 % [place] Body Weight 120 lb Results Test Acquired Date Facility Test Result H/L Range Note Complete Blood Count 07/03/2020 [facility] Outpatient Test ing (Registration) [address] [place] [address] [phone] White Blood Count 8.1 10 Normal 4.0-10.0 Red Blood Count 4.05 10 Normal 4.00-5.40 Hemoglobin 12.3 g/dL Normal 12.0-15.5 Hematocrit 36.8 % Normal 36.0-47.0 Mean Corpuscular Volume 90.9 fl Normal 80.0-96.0 Mean Corpuscular Hemoglobin 30.4 pg Normal 27.0-33.0 Mean Corpuscular HGB Conc 33.4 g/dL Normal 32.0-36.5 Red Cell Distribution Width 12.9 % Normal 11.5-14.5 Platelet Count, Automated 279 10 Normal 150-450 Nucleated Red Blood Cell % 0.0 % Normal 0-0 Type & Screen 1 - Includes Blo 07/03/2020 [facility] Outpatient Testing (Registration) [address] [place] [address] [phone] Blood Type A POSITIVE Normal AB Screen PNP1 Gel (Vis) NEGATIVE Normal Laboratory test finding 05/18/2020 [facility] Outpatient T esting (Registration) [address] [place] [address] [phone] Progesterone 85.30 NG/ML Normal 1 HCG, Serum Quantitative 144 MIU/ML Normal 2 Laboratory test finding 05/16/2020 [facility] Outpatient T esting (Registration) [address] [place] [address] [phone] HCG, Serum Quantitative 68 MIU/ML Normal 3 [...] monitoring the treatment of cancer patients. Siemens InfiniDB methodology. 3 GESTATIONAL AGE APPROXIMATE HCG RANGE [...] monitoring the treatment of cancer patients. Siemens InfiniDB methodology. Procedures Description No Information Available Medical Devices Description No Information Available Encounters Description No Information Available Assessments Description No Information Available Plan of Treatment No Information Available Functional Status Description No Information Available Mental Status Description No Information Available Referrals Description No Information Available
--- OUTSIDE RECORDS SUMMARY | 2020-07-22 16:37 | CCD | Continuity of Care Document ---
Author Author China HAYDEN D.Dorcas Organization Unknown Address [address] [place] [address] Phone [phone] Care Team Providers Care Drawing Operator Name Role Phone Vandana Hayden D.O. AUTM [phone] Problems Description No Information Available Social History [...] F O2 % BldC Oximetry 99 % [place] Body Weight 120 lb 08/01/2017 9:14am BP Systolic 104 mmHg BP Diastolic 78 mmHg Height 64 inches 5'4" Weight 121.25 lb BMI (Body Mass Index) 20.8 kg/m2 Heart Rate 86 /min Respiratory Rate 16 /min Body Temperature 98.3 F O2 % BldC Oximetry 98 % [place] Body Weight 120 lb Results Test Acquired Date Facility Test Result H/L Range Note Laboratory test finding 05/16/2020 [facility] Outpatient T esting (Registration) [address] [place] [address] [phone] HCG, Serum Quantitative 68 MIU/ML Normal 1 1 GESTATIONAL AGE APPROXIMATE HCG RANGE (MIU/ML) - [...] monitoring the treatment of cancer patients. Siemens ActiveO methodology. Procedures Description No Information Available Medical Devices Description No Information Available Encounters Type Date Location Provider Dx Diagnosis Office Visit 12/07/2019 2:20p Family Medicine [facility] JEEVAN Mayen J06.9 Acute upper respiratory infe ction, unspecified Assessments Date Code Description Provider 12/07/2019 J06.9 Acute upper respiratory infectio n, unspecified JEEVAN Mayen Plan of Treatment No Information Available Functional Status Description No Information Available Mental Status Description No Information Available Referrals Description No Information Available
--- OUTSIDE RECORDS SUMMARY | 2020-07-22 16:37 | CCD ---
Author Author [facility] Organization [facility] Address Unknown Phone Unavailable Care Team Providers Care Country Manager Name Role Phone DickDangelo Unavailable PROBLEMS Type Condition ICD9-CM Code [id number] Code Onset Dates Condition S tatus SNOMED Code Notes Problem Supervision of other normal Z34.80 Ac tive [id number] ALLERGIES Allergen (clinical drug ingredient) Drug/Non Drug Allergy do cumented on EMR Reaction Allergy Type Onset Date Status amoxicillin Amoxicillin([facility] Code:[address]-24) Hives Drug Aller gy Active ENCOUNTERS from 1985 to 2020-06-25 Encounter Location Date Provider Diagnosis [facility] [address] [place] [address] May, Dangelo Jennings Encounter for superv ision of normal in first trimester Z34.91 IMMUNIZATIONS No Information SOCIAL HISTORY Tobacco Use: Social History Observation Description Date Details (start date - stop date) Never Smoker Sex Assigned At : Social History Observation Description Sex Assigned At Unknown Tobacco Use: Question Answer Notes Are you a: never smoker REASON FOR REFERRAL No Information VITAL SIGNS Weight 116.2 lbs May, Weight-kg 52.71 kg May, Height 64 in May, BMI 19.946 kg/m2 May, Blood pressure systolic 108 mm Hg May, Blood pressure diastolic 72 mm Hg May, MEDICATIONS Medication SIG (Take, Route, Frequency, Duration) Notes Start Da te End Date Status Progesterone 50 MG/ML as directed; 1 mL Intramuscular one time per da y Active Metrogel 1 % 1 application Externally Once a day Nov, 2 020 Not-Taking 28-0.8 MG 1 tablet Orally Once a day Active Clobetasol Propionate 0.05 % 1 application Externally Twice a day Active Aspirin 81 81 MG 1 tablet Orally Once a day Active Vitamin D 50 MCG (1999) 1 tablet Orally Once a day Active Clobetasol Propionate 0.05 % 1 application to affected area Externally Twice a day for 10 day(s) Not-Taking PROCEDURES No Information RESULTS No Results REASON FOR VISIT TRANSFER FROM [facility]WKS MEDICAL (GENERAL) HISTORY Type Description Date Medical History lichen sclerosis Surgical History 2019 Hospitalization History childbirth Goals Section No Information Health Concerns No Information MEDICAL EQUIPMENT No Information MENTAL STATUS No Information FUNCTIONAL STATUS No Information ASSESSMENTS Encounter Date Diagnosis Assessment Notes Treatment Notes Treatm ent Clinical Notes May, Encounter for supervision of normal in first trimester (ICD-10 - Z34.91) PLAN OF TREATMENT Treatment Notes Test Name Order Date HIV 1&2 ANTIBODY SCREEN 2020-06-25 SYPHILIS ANTIBODY (RPR SCREEN) 2020-06-25 CBC - Complete Blood Count 2020-06-25 RUBELLA IMMUNE STATUS IgG 2020-06-25 URINE CULTURE 2020-06-25 CHLAMYDIA & GC DNA AMPLIFICAT 2020-06-25 HEPATITIS C ANTIBODY INDEX 2020-06-25 HBSAG 2020-06-25 Type and Screen Prenatal1 2020-06-25 Next Appt Details 4 Weeks Reason: Provider Name:Sharda Mcgovern, 2020-07-21 03:20:00 PM, [address] [place], [address], Insurance Providers Payer Name Payer Address Payer Phone Insured Name Patient Relati onship to Insured Coverage Start Date Coverage End Date BS MOIRA WATTS [place] [address] [address] [place] [address] MALGORZATA CARUSO self
--- OUTSIDE RECORDS SUMMARY | 2020-07-22 16:37 | CCD | Continuity of Care Document ---
Author Organization Unknown Address Unknown Phone Unavailable Care Team Providers Care Loom Setter Name Role Phone Vandana Hayden D.O. AUTM [phone] Problems Description No Information Available Social History [...] F O2 % BldC Oximetry 99 % [place] Body Weight 120 lb 08/01/2017 9:14am BP Systolic 104 mmHg BP Diastolic 78 mmHg Height 64 inches 5'4" Weight 121.25 lb BMI (Body Mass Index) 20.8 kg/m2 Heart Rate 86 /min Respiratory Rate 16 /min Body Temperature 98.3 F O2 % BldC Oximetry 98 % [place] Body Weight 120 lb Results Test Acquired Date Facility Test Result H/L Range Note Complete Blood Count 07/03/2020 [facility] Outpatient Test ing (Registration) [address] [place] [address] [phone] White Blood Count 8.1 10 Normal 4.0-10.0 [...] & Screen 1 - Includes Blo 07/03/2020 [facility] Outpatient Testing (Registration) [address] [place] [address] [phone] Blood Type A POSITIVE Normal AB Screen PNP1 Gel (Vis) NEGATIVE Normal Laboratory test finding 07/03/2020 [facility] Outpatient T esting (Registration) [address] [place] [address] [phone] Hepatitis C Virus Symone Index 0.1 INDEX Normal <0.8 1 HBsAg NEGATIVE Normal Negative Syphilis NONREACTIVE Normal Nonreactive Rubella Immune Status IMMUNE Normal Immune 2 HIV 1&2 Screen Centaur NEGATIVE Normal Negative 3 Urine Culture FULL REPORT IN L <SEE NOTE> Normal 4 Laboratory test finding 05/18/2020 [facility] Outpatient T esting (Registration) [address] [place] [address] [phone] Progesterone 85.30 NG/ML Normal 5 HCG, Serum Quantitative 144 MIU/ML Normal 6 Laboratory test finding 05/16/2020 [facility] Outpatient T esting (Registration) [address] [place], [place] [address] [phone] HCG, Serum Quantitative 68 MIU/ML Normal 7 1 Negative Not infected with HCV, unless recent infection is suspected or other evidence exists to indicate HCV infection. 2 THE RUBELLA RESULT WAS OBTAI SAADIA WITH THE CENTAUR RUBELLA IGG ASSAY. IgG VALUES FROM ANOTHER MANUFACTURERS' METHOD MAY NOT BE USED INTERCHANGEABLY. MAGNITUDE OF LEVEL CANNOT BE CORRELATED TO AN ENDPOINT TITER. SUSCEPTIBLE 0.00-5.00 IU/ML EQUIVOCAL 5.01-9.99 IU/ML IMMUNE > 10.00 IU/ML 3 This assay was performed uti lizing a chemiluminescent principle technique for the simultaneous qualitative detection of HIV-1 p24 antigen & antibodies to HIV-1 (including group O) & HIV-2 using the Lytro XP system. The estimated 95% confidence interval for sensitivity of this antigen/antibody combination assay for HIV-1&2 antibodies is 99.7-100% and HIV p24 antigen is 89.4-99.9%. The estimated 95% confidence interval for specificity of this antigen/antibody combination in low risk populations is 99.6-99.8%. 4 FULL REPORT IN LAB NOTES ( W and [employer]). ORGANISM 1: LACTOBACILLUS SPECIES COLONY COUNT 100,000 Most Lactobacillus species recovered from clinical specimens are rarely pathogenic. Penicillin or ampicillin with or without gentamicin is recommended for treatment. Clindamycin and erythromycin are alternative treatments. Vancomycin resistance has been reported. ORGANISM 1: LACTOBACILLUS SPECIES 5 Normal Ranges (ng/ml) Females : FOLLICULAR PHASE 0.15-1.40 LUTEAL PHASE 3.34-25.56 MID-LUTEAL PHASE 4.44-28.03 POST MENOPAUSAL <0.73 Females : 1st TRIMESTER 11.22-90.00 2nd TRIMESTER 25.55-89.40 3rd TRIMESTER 48.40-422.50 6 GESTATIONAL AGE APPROXIMATE HCG RANGE (MIU/ML) - [...] monitoring the treatment of cancer patients. Siemens SailPoint Technologies methodology. 7 GESTATIONAL AGE APPROXIMATE HCG RANGE (MIU/ML) - [...] monitoring the treatment of cancer patients. Siemens Cougar methodology. Procedures Description No Information Available Medical Devices Description No Information Available Encounters Description No Information Available Assessments Description No Information Available Plan of Treatment No Information Available Functional Status Description No Information Available Mental Status Description No Information Available Referrals Description No Information Available
--- OUTSIDE RECORDS SUMMARY | 2020-07-22 16:37 | CCD | Continuity of Care Document ---
Author Organization Unknown Address Unknown Phone Unavailable Care Team Providers Care Paste Up Worker Name Role Phone Vandana Hayden D.O. AUTM [...] F O2 % BldC Oximetry 99 % [place] Body Weight 120 lb 08/01/2017 9:14am BP Systolic 104 mmHg BP Diastolic 78 mmHg Height 64 inches 5'4" Weight 121.25 lb BMI (Body Mass Index) 20.8 kg/m2 Heart Rate 86 /min Respiratory Rate 16 /min Body Temperature 98.3 F O2 % BldC Oximetry 98 % [place] Body Weight 120 lb Results Test Acquired Date Facility Test Result H/L Range Note Complete Blood Count 07/03/2020 [facility] Outpatient Test ing (Registration) [address] [place] [address] [phone] White Blood Count 8.1 10 Normal 4.0-10.0 [...] & Screen 1 - Includes Blo 07/03/2020 [facility] Outpatient Testing (Registration) [address] [place] [address] [phone] Blood Type A POSITIVE Normal AB Screen PNP1 Gel (Vis) NEGATIVE Normal Laboratory test finding 07/03/2020 [facility] Outpatient T esting (Registration) [address] [place] [address] [phone] Hepatitis C Virus Symone Index 0.1 INDEX Normal <0.8 1 HBsAg NEGATIVE Normal Negative Syphilis NONREACTIVE Normal Nonreactive Rubella Immune Status IMMUNE Normal Immune 2 HIV 1&2 Screen Centaur NEGATIVE Normal Negative 3 Laboratory test finding 05/18/2020 [facility] Outpatient T esting (Registration) [address] [place] [address] [phone] Progesterone 85.30 NG/ML Normal 4 HCG, Serum Quantitative 144 MIU/ML Normal 5 Laboratory test finding 05/16/2020 [facility] Outpatient T esting (Registration) [address] [place], [place] [address] [phone] HCG, Serum Quantitative 68 MIU/ML Normal 6 1 Negative Not infected with HCV, unless [...] (including group O) & HIV-2 using the EggCartel system. The estimated 95% confidence interval for sensitivity of this antigen/antibody combination assay for HIV-1&2 antibodies is 99.7-100% and HIV p24 antigen is 89.4-99.9%. The estimated 95% confidence interval for specificity of this antigen/antibody combination in low risk populations is 99.6-99.8%. 4 Normal Ranges (ng/ml) Females : FOLLICULAR PHASE 0.15-1.40 LUTEAL PHASE 3.34-25.56 MID-LUTEAL PHASE 4.44-28.03 POST MENOPAUSAL <0.73 Females : 1st TRIMESTER 11.22-90.00 2nd TRIMESTER 25.55-89.40 3rd TRIMESTER 48.40-422.50 5 GESTATIONAL AGE APPROXIMATE HCG RANGE (MIU/ML) - [...] monitoring the treatment of cancer patients. Siemens Offerum methodology. 6 GESTATIONAL AGE APPROXIMATE HCG RANGE (MIU/ML) [...] monitoring the treatment of cancer patients. Siemens Offerum methodology. Procedures Description No Information Available Medical Devices Description No Information Available Encounters Description No Information Available Assessments Description No Information Available Plan of Treatment No Information Available Functional Status Description No Information Available Mental Status Description No Information Available Referrals Description No Information Available
[2020-07-22] MEDS ORDERED: ECOT81TA5 PO (16:38)
[2020-07-22 17:37] LABS: BASO % 0.4 % (0.0-1.0); EOS # 0.1 10^3/uL (0.0-0.5); EOS % 1.3 % (0.0-3.0); HEMATOCRIT 36.8 % (36.0-47.0); HEMOGLOBIN 12.1 g/dl (12.0-15.5); LYMPH # 2.6 10^3/uL (1.5-5.0); LYMPH % 34.5 % (24.0-44.0); MEAN CORPUSCULAR HEMOGLOBIN 29.8 pg (27.0-33.0); MEAN CORPUSCULAR HGB CONC 32.9 g/dl (32.0-36.5); MEAN CORPUSCULAR VOLUME 90.6 fl (80.0-96.0); MONO # 0.4 10^3/uL (0.0-0.8); MONO % 5.9 % (2.0-8.0); NEUTROPHILS # 4.3 10^3/uL (1.5-8.5); NEUTROPHILS % 57.6 % (36.0-66.0); PLATELET COUNT, AUTOMATED 218 10^3/uL (150-450); RED BLOOD COUNT 4.06 10^6/uL (4.00-5.40); WHITE BLOOD COUNT 7.5 10^3/uL (4.0-10.0)
--- OUTSIDE RECORDS SUMMARY | 2020-07-22 17:54 | CCD ---
Author Author [facility] Organization [facility] Address Unknown Phone Unavailable Care Team Providers Care Periodicals Clerk Name Role Phone David Michael PA Unavailable [...] is protected by Article 27-F of the [facility] Public Health law. If you continue you may have access to information: Regarding HIV / AIDS; Provided by facilities licensed or operated by the [facility] Office of Mental Health; or Provided by the [facility] Office for People With Developmental Disabilities. If such information is present, then the following [facility] mandated warning applies: This information has [...] law may result in a fine or half-way sentence or both. A general authorization for the release of medical or other information is NOT sufficient authorization for further disc losure. Family History Family Member Name Family Member Gender Family Member Status Date o f Status Description Data Source(s) Unknown Unknown Problem [facility] Unknown Male Problem MEDENT ([facility]) Unknown Male Problem MEDENT ([facility]) Encounters Encounter Providers Location Date Indications Data Source(s ) ( ESTOB) [facility]Center Est OB [address] [place] [address] 06/24/2020 12:00:00 AM EST eCW1 ([facility]) Outpatient [address] [facility] [address] 05/17/2020 12:00:00 AM EST eCW1 ([facility]) Outpatient [address] [facility] [id number] 03/15/2020 12:00:00 AM EDT eCW1 ([facility]) Outpatient [address] [facility] [address] 03/03/2020 12:00:00 AM EDT eCW1 ([facility]) [facility] [address] [place] [address] 02/26/2020 12:00:00 AM EDT eCW1 ([facility]) Unknown [address] [facility] [address] 12/15/2019 12:00:00 AM EDT eCW1 ([facility]) Outpatient Attender: Michael CHEW [facility] 12/07/2019 02:20:00 PM EDT MEDENT ([facility]) Outpatient Attender: Angy diehl 06/09/2019 03:35:00 PM EST MEDENT ([facility]) Immunizations Vaccine Date Status Description Data Source(s) [...] 1.0 {application} active Metrogel 1 % eCW1 ([facility]) Metronidazole 0.01 MG/MG Topical Gel [MetroGel] Metrogel 1 % Metrogel 1 % 12/18/2019 12:00:00 AM EDT 1.0 {application} suspend ed Metrogel 1 % eCW1 ([facility]) Metronidazole 0.01 MG/MG Topical Gel [MetroGel] Metrogel 1 % Metrogel 1 % 12/18/2019 12:00:00 AM EDT 1.0 {application} suspend ed Metrogel 1 % eCW1 ([facility]) Metronidazole 0.01 MG/MG Topical Gel [MetroGel] Metrogel 1 % Metrogel 1 % 12/18/2019 12:00:00 AM EDT 1.0 {application} suspend ed Metrogel 1 % eCW1 ([facility]) Metronidazole 0.01 MG/MG Topical Gel [MetroGel] Metrogel 1 % Metrogel 1 % 12/18/2019 12:00:00 AM EDT 1.0 {application} suspend ed Metrogel 1 % eCW1 ([facility]) 0.75 % 12/15/2019 12:00:00 AM EDT gel 70 INSERT ONE APPLICATION VAGINALLY ONCE DAILY FOR 5 DAYS INSERT ONE APPLICATION VAGINALLY ONCE DAILY FOR 5 DAYS SOLD: 12/15/2019 [employer] Metronidazole 500 MG Oral Tablet METRONIDAZOLE 12/14/2019 12:0 0:00 AM EDT tablet 14 TAKE ONE TABLET BY MOUTH TWICE A DAY FOR 7 DAYS TAKE ONE TABLET BY MOUTH TWICE A DAY FOR 7 DAYS SOLD: 12/14/2019 [email or web address] [facility] Insurance Providers Payer name Policy type / Coverage type Policy ID Covered constitution party ID Covered constitution party's relationship to seo Policy Seo Plan Information BCBS FEDERAL EMPLOYEE PROGRAM [id number] SP [id number] BS FEDERAL EMPLOYEE PROGRAM [id number] SP [id number] [facility] [place] P[place] 302/[phone] [id number] SP [id number] [facility] FEDERAL EMPLOYEE PROGRAM [id number] SP [id number] [facility] Federal Plan Commercial [id number] Self [id number] [employer] BC[employer] Health Maintenance Organization (HMO) [id number] Self [id number] [employer] C [id number] Self [id number] [place] FEDERAL B [id number] S [id number] [facility] Federal Plan Commercial [id number] Self R [id number] BS Federal Plan Commercial [id number] Self R [id number] [facility] FEDERAL EMPLOYEE PROGRAM [id number] SP [id number] [facility] UNAVAILABLE 18 UNAVAILABLE [employer] HEA [id number] S [id number] BS Federal Commercial [id number] Self [id number] 1 [place] BS Health Maintenance Organization (HMO) [id number] Self [id number] [facility] Federal Plan Commercial [id number] Self [id number] [facility] Federal Plan Commercial [id number] Self R [id number] Problems, Conditions, and Diagnoses Code Display Name Description Problem Type Effective Dates Data Source(s) Z34.80 care Supervision of other normal P bereniceclint 06/17/2020 12:00:00 AM EST eCW1 ([facility]) Results ID Date Data Source [id number] 07/03/2020 08:55:00 AM EST MEDENT ([facility]) Name Value Range Interpretation Code Description Data Venita rce(s) Supporting Document(s) Hepatitis C virus Ab [Units/volume] in Serum by Immunoassay 0.1 INDEX Normal (applies to non-numeric results) MEDENT ([facility]) Negative Not infected with HCV, unless recent infection is suspected or other evidence exists to indicate HCV infection. Hepatitis B virus surface Ag [Presence] in Serum or Pl asma by Immunoassay Laboratory test result Normal (applies to non-numeric results) MEDENT ([facility]) Reagin Ab [Presence] in Serum by RPR Laboratory test result Normal (applies to non-numeric results) [facility] ([facility]) HIV 1+2 Ab [Presence] in Serum Laboratory test result Normal (applies to non- numeric results) [facility] ([facility]) <content>This assay was performed utiliz ing a [...] test result Normal (applies to non-numeric results) [facility] ([facility]) THE RUBELLA RESULT WAS OBTAINED WITH THE CENTAUR RUBELLA IGG ASSAY. IgG VALUES FROM ANOTHER MANUFACTURERS' METHOD MAY NOT BE USED INTERCHANGEABLY. MAGNITUDE OF LEVEL CANNOT BE CORRELATED TO AN ENDPOINT TITER. SUSCEPTIBLE 0.00-5.00 IU/ML EQUIVOCAL 5.01-9.99 IU/ML IMMUNE > 10.00 IU/ML Bacteria identified in Urine by Culture Laboratory test result Normal (applies to non-numeric results) [facility] ([facility]) FULL REPORT IN LAB NOTES (eCW and [facility] ). ORGANISM 1: LACTOBACILLUS SPECIES COLONY COUNT 100,000 Most Lactobacillus species recovered from clinical specimens are rarely pathogenic. Penicillin or ampicillin with or without gentamicin is recommended for treatment. Clindamycin and erythromycin are alternative treatments. Vancomycin resistance has been reported. ORGANISM 1: LACTOBACILLUS SPECIES ID Date Data Source [id number] 07/03/2020 08:55:00 AM EST [facility] ([facility]) Name Value Range Interpretation Code Description Data Venita rce(s) Supporting Document(s) AB Screen PNP1 Gel (Vis) Laboratory test result Normal (applies to non- numeric results) [facility] ([facility]) Blood Type Laboratory test result Normal (applies to non-n umeric results) [facility] ([facility]) ID Date Data Source [id number] 07/03/2020 08:55:00 AM EST MEDENT ([facility]) Name Value Range Interpretation Code Description Data Venita rce(s) Supporting Document(s) White Blood Count 8.1 10 4.0-10.0 Normal (applies to non-numeri c results) MEDENT ([facility]) Red Blood Count 4.05 10 4.00-5.40 Normal (applies to non-numeric results) MED[facility] ([facility]) Mean Corpuscular Volume 90.9 fl 80.0-96.0 Normal ( applies to non-numeric results) MED[facility] ([facility]) Hematocrit 36.8 % 36.0-47.0 Normal (applies to non-numeric resul ts) [facility] ([facility]) Hemoglobin 12.3 g/dL 12.0-15.5 Normal (applies to non-numeric resul ts) [facility] ([facility]) Mean Corpuscular Hemoglobin 30.4 pg 27.0-33.0 Norm al (applies to non-numeric results) [facility] ([facility]) Red Cell Distribution Width 12.9 % 11.5-14.5 Norm al (applies to non-numeric results) [facility] ([facility]) Mean Corpuscular HGB Conc 33.4 g/dL 32.0-36.5 Normal (applies to non-numeric results) [facility] ([facility]) Nucleated Red Blood Cell % 0.0 % 0-0 Normal (applies to n on-numeric results) [facility] ([facility]) Platelet Count, Automated 279 10 150-450 Normal (applies to non-numeric results) [facility] ([facility]) ID Date Data Source [id number] 05/18/2020 06:15:00 AM EST MEDENT ([facility]) Name Value Range Interpretation Code Description Data Venita rce(s) Supporting Document(s) Choriogonadotropin.beta subunit [Moles/volume] in Serum or Plasm a 144 MIU/ML Normal (applies to non-numeric results) MEDENT ([facility]) GESTATIONAL AGE APPROXIMATE HCG RANGE (MIU/ML) - [...] monitoring the treatment of cancer patients. Siemens VenueBook methodology. Progesterone [Mass/volume] in Serum or Plasma 85.30 ng/mL Normal (applies to non-numeric results) [facility] ([facility]) <content>Normal Ranges (ng/ml)</content>
<content>Females :</content>
<content>FOLLICULAR PHASE 0.15- 1.40</content>
<content>LUTEAL PHASE 3.34-25.56</content>
<content>MID-LUTEAL PHASE 4.44- 28.03</content>
<content>POST MENOPAUSAL <0.73</content>
<content></content>
<content> Females :</content>
<content>1st TRIMESTER 11.22- 90.00</content>
<content>2nd TRIMESTER 25.55- 89.40</content>
<content>3rd TRIMESTER 48.40-422.50</content>
<content></content> ID Date Data Source [id number] 05/16/2020 08:18:00 AM EST [facility] ([facility]) Name Value Range Interpretation Code Description Data Venita rce(s) Supporting Document(s) Choriogonadotropin.beta subunit [Moles/volume] in Serum or Plasm a 68 MIU/ML Normal (applies to non-numeric results) MED[facility] ([facility]) GESTATIONAL AGE APPROXIMATE HCG RANGE (MIU/ML) - [...] monitoring the treatment of cancer patients. Siemens [place] methodology. ID Date Data Source PAP REQUEST FOR SERVICE 03/17/2020 04:37:47 AM EDT eCW1 ([facility]) Name Value Range Interpretation Code Description Data Venita rce(s) Supporting Document(s) PAP REQUEST FOR SERVICE eCW1 ( [facility]) ID Date Data Source GENITAL CULTURE 03/07/2020 03:14:27 AM EDT eCW1 ([facility]) Name Value Range Interpretation Code Description Data Venita rce(s) Supporting Document(s) GENITAL CULTURE eCW1 ([facility]) ID Date Data Source WET PREP 03/03/2020 01:21:38 PM EDT eCW1 ([facility]) Name Value Range Interpretation Code Description Data Venita rce(s) Supporting Document(s) 4.5 PH eCW1 ([facility]) neg whiff eCW1 ([facility]) neg Clue Cells eCW1 ([facility]) WET PREP eCW1 ([facility]) neg Hypae eCW1 ([facility]) neg Lactobacillus eCW1 ([facility]) neg Trichomoniads eCW1 ([facility]) neg WBC eCW1 ([facility]) neg RBC eCW1 ([facility]) Procedure Social History Code Duration Value Status Description Data Source(s ) Smoking 06/24/2020 12:00:00 AM EST Never Smoker completed Never S moker eCW1 ([facility]) Smoking 05/17/2020 12:00:00 AM EST Never Smoker completed Never S moker eCW1 ([facility]) Smoking 03/15/2020 12:00:00 AM EDT Never Smoker completed Never S moker eCW1 ([facility]) Smoking 03/03/2020 12:00:00 AM EDT Never Smoker completed Never S moker eCW1 ([facility]) Vital Signs ID Date Data Source UNK Name Value Range Interpretation Code Description Data Source(s) Diastolic blood pressure 72 mm[Hg] 72 mm[Hg] eCW1 ([facility]) Systolic blood pressure 108 mm[Hg] 108 mm[Hg] e CW1 ([facility]) Body mass index (BMI) [Ratio] 19.946 kg/m2 19.9 46 kg/m2 [facility] ([facility]) Body height 64 [in_i] 64 [in_i] eCW1 ([facility]) Body weight 52.71 kg 52.71 kg W1 ([facility]) Body weight 116.2 [lb_av] 116.2 [lb_av] eCW1 ([facility]) Diastolic blood pressure 70 mm[Hg] 70 mm[Hg] eCW1 ([facility]) Systolic blood pressure 122 mm[Hg] 122 mm[Hg] e CW1 ([facility]) Body mass index (BMI) [Ratio] 19.57 kg/m2 19.57 kg/m2 W1 ([facility]) Body height 64 [in_i] 64 [in_i] eCW1 ([facility]) Body weight 114 [lb_av] 114 [lb_av] eCW1 ([facility]) Diastolic blood pressure 80 mm[Hg] 80 mm[Hg] eCW1 ([facility]) Systolic blood pressure 108 mm[Hg] 108 mm[Hg] e CW1 ([facility]) Body mass index (BMI) [Ratio] 19.81 kg/m2 19.81 kg/m2 W1 ([facility]) Body height 64 [in_i] 64 [in_i] eCW1 ([facility]) Body weight 52.34 kg 52.34 kg eCW1 ([facility]) Body weight 115.4 [lb_av] 115.4 [lb_av] eCW1 ([facility]) Diastolic blood pressure 70 mm[Hg] 70 mm[Hg] eCW1 ([facility]) Systolic blood pressure 108 mm[Hg] 108 mm[Hg] e CW1 ([facility]) Body mass index (BMI) [Ratio] 19.91 kg/m2 19.91 kg/m2 W1 ([facility]) Body height 64 [in_i] 64 [in_i] eCW1 ([facility]) Body weight 52.62 kg 52.62 kg W1 ([facility]) Body weight 116 [lb_av] 116 [lb_av] eCW1 ([facility]) [place] body weight 120 [lb_av] 120 [lb_av] MEDEN T ([facility]) Oxygen saturation in Arterial blood by Pulse oximetry 99 % 99 % MEDENT ([facility]) Body temperature 99.3 [degF] 99.3 [degF] MEDENT ([facility]) Respiratory rate 18 /min 18 /min MEDENT ( [facility]) Heart rate 85 /min 85 /min MEDENT ([facility]) Body mass index (BMI) [Ratio] 19.4 kg/m2 19.4 k g/m2 MEDENT ([facility]) Body weight 113.00 [lb_av] 113.00 [lb_av] MEDEN T ([facility]) Body height 64 [in_i] 64 [in_i] MEDENT ([facility]) 5'4" Diastolic blood pressure 64 mm[Hg] 64 mm[Hg] [facility] ([facility]) Systolic blood pressure 106 mm[Hg] 106 mm[Hg] M EDENT ([facility]) Body mass index (BMI) [Ratio] 19.7 kg/m2 19.7 k g/m2 MEDENT ([facility]) Body height 64 [in_i] 64 [in_i] MEDENT ([facility]) 5'4" Body weight 115.00 [lb_av] 115.00 [lb_av] MEDEN T ([facility], [facility]) Body temperature 99.3 [degF] 99.3 [degF] [facility] ([facility]) Oxygen saturation in Arterial blood by Pulse oximetry 98 % 98 % [facility] ([facility]) Respiratory rate 16 /min 16 /min [facility] ( [facility]) Heart rate 96 /min 96 /min [facility] ([facility]) Diastolic blood pressure 73 mm[Hg] 73 mm[Hg] [facility] ([facility]) Systolic blood pressure 107 mm[Hg] 107 mm[Hg] [facility] Patient Treatment Plan of Care Planned Activity Planned Date Details Description Data Source (s) Metronidazole 0.01 MG/MG Topical Gel [MetroGel] 12/18/2019 12:00:00 AM EDT eCW1 ([facility])
[2020-07-22 18:29] LABS: BLOOD UREA NITROGEN 17 MG/DL (7-18); CALCIUM LEVEL 8.5 MG/DL (8.5-10.1); CARBON DIOXIDE LEVEL 23 MEQ/L (21-32); CHLORIDE LEVEL 108 MEQ/L (98-107); CREATININE FOR GFR 0.52 MG/DL (0.55-1.30); GLOMERULAR FILTRATION RATE > 60.0 (>60); GLUCOSE, FASTING 74 MG/DL (70-100); HCG, SERUM QUANTITATIVE 74565 MIU/ML; POTASSIUM SERUM 3.9 MEQ/L (3.5-5.1); SODIUM LEVEL 138 MEQ/L (136-145)
--- NOTE | 2020-07-22 19:34 | REPVR ---
PROCEDURE INFORMATION: Exam: US First Trimester, Transabdominal Exam date and time: 07/22/2020 6:42 PM Age: 34 years old Clinical indication: Lmp or gestational age (in weeks): 13 weeks 5 days; Other: Spotting; ; Additional info: Spotting/cramping TECHNIQUE: Imaging protocol: Real-time transabdominal obstetrical ultrasound of the maternal pelvis and a first trimester , less than 14 weeks 0 days, with image documentation. COMPARISON: No relevant prior studies available. FINDINGS: Gestation: Intrauterine gestation, in variable presentation. Embryonic/ heart rate: 152 bpm. Placenta: The placenta is anterior and left lateral, grade 0 with a marginal insertion of the umbilical cord approximately 0.6 to 1 cm from the edge of the placenta. There is a probable subacute or early chronic subchorionic hematoma present extending from the internal os to the right side of the uterus measuring 6.7 x 3.6 x 2.7 cm. Amniotic fluid: Amniotic fluid is normal for gestational age. BIOMETRY: Gestational age (AUA): 13 weeks and 6 days with an FALLON of 01/21/2021. This is concordant with the gestational age by LMP of 13 weeks and 5 days. BPD: 2.63 cm 14 weeks 5 days at the 79% growth percentile HC: 9.55 cm 14 weeks 3 days at the 62% growth percentile AC: 7.92 cm 14 weeks 3 days at the 78% growth percentile FL: 1.15 cm 13 weeks 2 days at the 23% growth percentile. Estimated weight: 84 g, 0 lb 3 oz which is at the 39% weight percentile MATERNAL: Uterus: Unremarkable. Cervix: Unremarkable. The cervix measures 4.1 cm in length and appears closed. Right adnexa: Unremarkable. Left adnexa: Unremarkable. Intraperitoneal space: No intraperitoneal free fluid. IMPRESSION: 1. Single living intrauterine fetus in variable presentation with estimated gestational age of 13 weeks and 6 days and an FALLON of 01/21/2021. 2. The placenta is anterior and left lateral, grade 0 with a marginal insertion of the umbilical cord approximately 0.6 to 1 cm from the edge of the placenta. There is a probable subacute or early chronic subchorionic hematoma present extending from the internal os to the right side of the uterus measuring 6.7 x 3.6 x 2.7 cm. I would recommend a short-term follow-up pelvic ultrasound to confirm continued viability of the . Electronically signed by: Wilver Zurita On 07/22/2020 19:35:19 PM
[2020-07-22 20:07] VITALS: BP 115/70
--- NOTE | 2020-07-24 07:23 | ED PDOC ---
Post-Departure Follow-Up radiology report faxed to Chel Rutledge MD Jul 24, 2020 07:23
== END 2020-07-22 20:13 | disposition home or self-care (01) ==
LOC: M ED 16:31
DX: O46.92 Antepartum hemorrhage, unspecified, second trimester (principal); Z3A.13 13 weeks gestation of pregnancy; Z88.1 Allergy status to other antibiotic agents; Z79.899 Other long term (current) drug therapy

== ENCOUNTER → 2020-09-01 | Outpatient (CLI) | payer BC ==
[~2020-09-01] MED LIST changes: +ECOT81TA5 PO
--- NOTE | 2020-09-01 19:59 | REP ---
INDICATION: ANATOMY. COMPARISON: 07/22/2020 TECHNIQUE: Multiple sonographic images of the gravid uterus. FINDINGS: There is a single intrauterine gestation in a breech presentation. The placenta is anterior left lateral with grade 0 maturity. There is no placenta previa. There is a three-vessel cord. The cords inserts eccentrically onto the placenta near the near the placental margin. The cord insertion is unremarkable. Cervix measures 3.6 cm. There is a contraction in the anterior uterine wall in the lower uterine segment during the examination. heart rate is 152 beats per minute. Amniotic fluid volume subjectively is normal. The composite gestational age by today's study is 19 weeks 4 days with an FALLON of 01/22/2021. Gestational age by the 1st ultrasound is 19 weeks 4 days with an FALLON of 01/22/2021. Gestational age by LMP is 19 weeks 4 days with an FALLON of 01/22/2021. weight is 278 g. This corresponds to 0 lb 9 oz. This is the 24th percentile for 19 weeks 4 days. The following anatomic structures are identified and are unremarkable: Cranium, cavum septum pellucidum, falx, intracranial ventricles, choroid plexus, cerebellum, cisterna magna, nuchal fold, facial profile, upper lip, cardiac rhythm, four-chamber heart, cardiac right left ventricular outflow tracts, diaphragm, abdominal wall, right kidney, bladder, spine, right and left upper extremities, right left lower extremities, 3 vessel cord. The following anatomic structures require follow-up: None mole bile echo extractor within the gastric lumen. Dilated left renal pelvis. Additionally, the umbilical cord inserts eccentrically onto the placenta near the placental margin. This places the patient at a higher risk for Vasa previa. Therefore, I recommend the patient return for endovaginal Doppler evaluation of the cervix and lower uterine segment for Vasa previa. IMPRESSION: The patient should return for follow-up imaging as discussed in detail above, to evaluate the stomach, left kidney and to evaluate the lower uterine segment for Vasa previa. <Electronically signed by Enoc Garsia > 09/01/201954
== END ==
LOC: M WHC 14:38
PROVIDERS: ATTEND Obstetrics & Gynecology
DX: Z34.92 Encounter for supervision of normal pregnancy, unspecified, second trimester (principal); Z3A.19 19 weeks gestation of pregnancy

== ENCOUNTER → 2020-09-19 | Outpatient (CLI) | payer BC ==
--- NOTE | 2020-09-19 15:38 | REP ---
INDICATION: PLACENTAL ABN. EDC January 22, 2021. COMPARISON: Comparison study 01 September 2020.. TECHNIQUE: Transabdominal and transvaginal scanning. FINDINGS: Scanning through the gravid uterus demonstrates a viable single intrauterine gestation in cephalic lie. motion is observed and heart rate is recorded at 152 beats per minute. A anterior placenta is seen, grade 1, without evidence of placenta previa. Closed cervical length is measured at 3.8 cm transvaginally. There is no evidence of placenta previa or Vasa previa. The umbilical cord insertion on the placenta is somewhat marginal period. No extrauterine abnormality is observed. Amniotic fluid is subjectively normal. Previous studies showed echogenic amniotic debris within the gastric lumen. The finding is not apparent today.. There is mild bilateral renal pyelectasis under 5 mm and less prominent than on the prior study. IMPRESSION: Viable single intrauterine gestation at 22 weeks 1 days by prior composite sonographic criteria. FALLON by prior sonography January 22, 2021. No complication identified. No evidence of placenta previa or Vasa previa. <Electronically signed by Duane Schultz > 09/19/20 [id number]
== END ==
LOC: M WHC 12:40
PROVIDERS: ATTEND Obstetrics & Gynecology
DX: O43.102 Malformation of placenta, unspecified, second trimester (principal); Z3A.22 22 weeks gestation of pregnancy

== ENCOUNTER → 2020-10-24 | Outpatient (CLI) | payer BC ==
[2020-10-24 09:50] LABS: HEMOGLOBIN 11.6 g/dl (12.0-15.5); MEAN CORPUSCULAR HEMOGLOBIN 30.1 pg (27.0-33.0); MEAN CORPUSCULAR HGB CONC 33.1 g/dl (32.0-36.5); MEAN CORPUSCULAR VOLUME 90.9 fl (80.0-96.0); PLATELET COUNT, AUTOMATED 229 10^3/uL (150-450); RED BLOOD COUNT 3.85 10^6/uL (4.00-5.40); WHITE BLOOD COUNT 7.8 10^3/uL (4.0-10.0)
== END ==
LOC: M LAB 08:04
PROVIDERS: ATTEND Obstetrics & Gynecology
DX: O34.211 Maternal care for low transverse scar from previous cesarean delivery (principal); Z3A.00 Weeks of gestation of pregnancy not specified

== ENCOUNTER → 2020-11-29 | Outpatient (CLI) | payer BC ==
--- NOTE | 2020-11-29 15:24 | REP ---
INDICATION: RENAL PYELECTASIS F/U. COMPARISON: 09/19/2020 TECHNIQUE: Transabdominal FINDINGS: Multiple ultrasonographic images of the gravid uterus shows a single living intrauterine gestation in the cephalic presentation. Doppler interrogation of the heart is shows a heart rate of 155 beats per minute. The placenta is anterior and not low-lying. The cervix measures 4.6 cm length and is closed. The subjective amniotic fluid volume is within normal limits. The calculated amniotic fluid index is 15 within expected range 8.5 to 24.3. BPD: 8.6 cm 34 weeks 4 days HC: 30.8 cm 34 weeks 2 days AC: 28.9 cm 32 weeks 6 days FL: 6.2 cm 32 weeks 2 days The estimated weight is 2097 g which is at the 62nd percentile for 32 week 2 day gestational age. There is no evidence of pelvicaliectasis today. IMPRESSION: Single living intrauterine gestation as described above with an estimated gestational age of 33 weeks 1 day via composite criteria and an estimated date of delivery of 01/16/2021 by today's exam. <Electronically signed by Jose D Bateman > 11/29/20 [id number]
== END ==
LOC: M WHC 14:46
PROVIDERS: ATTEND Obstetrics & Gynecology
DX: O34.211 Maternal care for low transverse scar from previous cesarean delivery (principal); Z3A.34 34 weeks gestation of pregnancy

== ENCOUNTER → 2020-12-26 | Outpatient (REF) | payer BC | LOC: M SFHCWAGY 18:33 | PROVIDERS: ATTEND Obstetrics & Gynecology | DX: O34.211 Maternal care for low transverse scar from previous cesarean delivery (principal) ==

== ENCOUNTER → 2021-01-11 | Outpatient (CLI) | payer BC | LOC: M LABSMTC 09:56 | PROVIDERS: ATTEND Anesthesiology | DX: Z20.828 Contact with and (suspected) exposure to other viral communicable diseases (principal); Z11.59 Encounter for screening for other viral diseases ==

== ENCOUNTER 2021-01-16 05:31 | Inpatient (IN) | payer BC ==
[2021-01-16] VITALS (8 sets, daily range): BP systolic 108–130; BP diastolic 62–76
[~2021-01-16] VITALS: Ht 162.6 cm; Wt 64.7 kg
[2021-01-16] MEDS ORDERED: FISH1000 PO (05:49)
[2021-01-16] MEDS ORDERED: COLA100C5 PO ×2 (05:49→08:56)
[2021-01-16] MEDS ORDERED: PRENTAB9 PO (05:49)
[2021-01-16] MEDS ORDERED: HOME MED LIST COMPLETE! XX SCH (05:50)
[2021-01-16 06:27] LABS: HEMATOCRIT 35.4 % (36.0-47.0); HEMOGLOBIN 12.1 g/dl (12.0-15.5); MEAN CORPUSCULAR HEMOGLOBIN 29.2 pg (27.0-33.0); MEAN CORPUSCULAR HGB CONC 34.2 g/dl (32.0-36.5); MEAN CORPUSCULAR VOLUME 85.5 fl (80.0-96.0); PLATELET COUNT, AUTOMATED 199 10^3/uL (150-450); RED BLOOD COUNT 4.14 10^6/uL (4.00-5.40); WHITE BLOOD COUNT 7.2 10^3/uL (4.0-10.0)
[2021-01-16] MEDS ORDERED: ceFAZolin SOD 2 GM in IV 1 EA IV ONE (06:30)
[2021-01-16] MEDS ORDERED: LR 1,000 ML IV ONE (06:30)
[2021-01-16] MEDS ORDERED: LR 1,000 ML IV SCH ×3 (06:30→09:00)
[2021-01-16] MEDS ORDERED: BICITRA 30ML SOLN UDC PO ONE (06:30)
[2021-01-16] MEDS ORDERED: METOCLOPRAMIDE INJ 10MG/2ML VIAL (J2765 PER 1) IV PRN (07:39)
[2021-01-16] MEDS ORDERED: NALOXONE INJ 0.4MG/1ML VIAL (J2310 PER 1MG) IV PRN ×2 (07:39)
[2021-01-16] MEDS ORDERED: NALBUPHINE HCL 10 MG/ML AMP (J2300) IV PRN (07:39)
[2021-01-16] MEDS ORDERED: diphenhydrAMINE 50MG/ML VIAL (J1200) IV PRN (07:39)
[2021-01-16] MEDS ORDERED: ONDANSETRON 4MG/2ML VIAL IV PRN ×3 (07:39→09:00)
[2021-01-16] MEDS ORDERED: MORPHINE PRES-FREE INJ 10 MG/10 ML VIAL (J2274) As Ordered ONE (07:54)
[2021-01-16] MEDS ORDERED: OXYTOCIN INJ 10 UNITS/ML VIAL (J2590) As Ordered ONE (07:54)
[2021-01-16] MEDS ORDERED: OXYTOCIN DRIP 30 UNITS in IV 1 EA IV SCH (08:50)
[2021-01-16] MEDS ORDERED: ACETAMINOPHEN 500 MG TAB PO PRN (08:50)
[2021-01-16] MEDS ORDERED: PERCOCET 5MG/325MG TAB PO PRN (08:50)
[2021-01-16] MEDS ORDERED: RHOGAM 300 MCG (1500 IU) INJ (J2790) IM SCH (08:50)
[2021-01-16] MEDS ORDERED: MEASLES,MUMPS,RUBELLA VACCINE INJ (MMR-II) (90707) SC SCH (08:50)
[2021-01-16] MEDS ORDERED: PERCOCET PO (08:56)
[2021-01-16] MEDS ORDERED: IBUP80TA PO (08:56)
[2021-01-16] MEDS: DOCUSATE SODIUM 100MG CAPSULE PO SCH ×2 (09:00→21:27)
[2021-01-16] MEDS ORDERED: fentaNYL 100 MCG/2 ML INJECTION (J3010) IV PRN (09:00)
[2021-01-16] MEDS ORDERED: oxyCODONE 5MG TAB PO PRN (09:00)
[2021-01-16] MEDS ORDERED: SIMETHICONE 80MG CHEW TAB PO PRN (09:00)
[2021-01-16] MEDS ORDERED: KETOROLAC 30 MG/ML 1ML VIAL As Ordered ONE (09:15)
[2021-01-16] MEDS: KETOROLAC 30 MG/ML 1ML VIAL IV SCH ×3 (09:16→21:26)
[2021-01-16] MEDS ORDERED: OXYTOCIN 30 UNITS IN 0.9% NaCl 500ML IV BAG (J2590) As Ordered ONE (09:51)
[2021-01-16] MEDS: PRENATAL VITAMINS CHEWABLE TABLET PO SCH (16:26)
[2021-01-17 02:00] VITALS: BP 101/58
[2021-01-17] MEDS: KETOROLAC 30 MG/ML 1ML VIAL IV SCH (04:03)
[2021-01-17 06:00] VITALS: BP 105/69
[2021-01-17 06:30] LABS: HEMATOCRIT 30.5 % (36.0-47.0); MEAN CORPUSCULAR HEMOGLOBIN 29.4 pg (27.0-33.0); MEAN CORPUSCULAR HGB CONC 33.1 g/dl (32.0-36.5); MEAN CORPUSCULAR VOLUME 88.7 fl (80.0-96.0); PLATELET COUNT, AUTOMATED 160 10^3/uL (150-450); RED BLOOD COUNT 3.44 10^6/uL (4.00-5.40); WHITE BLOOD COUNT 7.5 10^3/uL (4.0-10.0)
[2021-01-17 06:33] LABS: HEMOGLOBIN 10.1 g/dl (12.0-15.5)
[2021-01-17] MEDS: DOCUSATE SODIUM 100MG CAPSULE PO SCH ×2 (08:01→19:46)
[2021-01-17] MEDS: PRENATAL VITAMINS CHEWABLE TABLET PO SCH (08:01)
[2021-01-17 08:45] VITALS: BP 105/69
[2021-01-17 10:00] VITALS: BP 132/58
[2021-01-17] MEDS: IBUPROFEN 800 MG TAB PO SCH ×2 (11:25→19:46)
[2021-01-17] MEDS: PERCOCET 5MG/325MG TAB PO PRN ×2 (17:22→22:35)
[2021-01-17 18:00] VITALS: BP 119/74
[2021-01-17 22:00] VITALS: BP 102/65
[2021-01-18 02:30] VITALS: BP 122/75
[2021-01-18] MEDS: PERCOCET 5MG/325MG TAB PO PRN ×2 (02:41→12:04)
[2021-01-18] MEDS: IBUPROFEN 800 MG TAB PO SCH ×2 (04:39→12:03)
[2021-01-18 06:00] VITALS: BP 118/64
[2021-01-18] MEDS: PRENATAL VITAMINS CHEWABLE TABLET PO SCH (09:41)
[2021-01-18] MEDS: DOCUSATE SODIUM 100MG CAPSULE PO SCH (09:41)
== END 2021-01-18 12:10 | disposition home or self-care (01) | DRG 540 ==
LOC: M LDI 05:31 → M OBS 10:37
PROVIDERS: ADMIT Obstetrics & Gynecology; ATTEND Obstetrics & Gynecology
PROC: 10D00Z1 Extraction of Products of Conception, Low, Open Approach (ICD-10-PCS; principal; 2021-01-16 07:30)
DX: O34.211 Maternal care for low transverse scar from previous cesarean delivery (principal); Z88.0 Allergy status to penicillin; Z37.0 Single live birth; Z3A.39 39 weeks gestation of pregnancy

== ENCOUNTER → 2021-05-23 | Outpatient (CLI) | payer BC ==
[~2021-05-23] MED LIST changes: +FISH1000 PO; +PRENTAB9 PO
[2021-05-23 10:14] LABS: BASO # 0.1 10^3/uL (0.0-0.2); BASO % 0.6 % (0.0-1.0); EOS # 0.4 10^3/uL (0.0-0.5); HEMATOCRIT 41.4 % (36.0-47.0); HEMOGLOBIN 13.3 g/dl (12.0-15.5); LYMPH # 1.9 10^3/uL (1.5-5.0); LYMPH % 22.4 % (24.0-44.0); MEAN CORPUSCULAR HEMOGLOBIN 29.8 pg (27.0-33.0); MEAN CORPUSCULAR HGB CONC 32.1 g/dl (32.0-36.5); MEAN CORPUSCULAR VOLUME 92.8 fl (80.0-96.0); MONO # 0.5 10^3/uL (0.0-0.8); MONO % 5.7 % (2.0-8.0); NEUTROPHILS # 5.5 10^3/uL (1.5-8.5); NEUTROPHILS % 65.8 % (36.0-66.0); PLATELET COUNT, AUTOMATED 235 10^3/uL (150-450); RED BLOOD COUNT 4.46 10^6/uL (4.00-5.40); WHITE BLOOD COUNT 8.4 10^3/uL (4.0-10.0)
[2021-05-23 11:00] LABS: ALBUMIN 3.9 GM/DL (3.2-5.2); ALT/SGPT 35 U/L (12-78); BILIRUBIN,TOTAL 0.6 MG/DL (0.2-1.0); BLOOD UREA NITROGEN 17 MG/DL (7-18); CALCIUM LEVEL 9.2 MG/DL (8.5-10.1); CARBON DIOXIDE LEVEL 31 MEQ/L (21-32); CHLORIDE LEVEL 107 MEQ/L (98-107); FREE T4 0.91 NG/DL (0.76-1.46); GLOMERULAR FILTRATION RATE > 60.0 (>60); GLUCOSE, FASTING 73 MG/DL (70-100); POTASSIUM SERUM 4.2 MEQ/L (3.5-5.1); SODIUM LEVEL 143 MEQ/L (136-145); THYROID STIMULATING HORMONE 0.986 uIU/ML (0.358-3.740); TOTAL 25(OH) VITAMIN D 40.8 NG/ML (30.0-100.0); TOTAL PROTEIN 6.8 GM/DL (6.4-8.2)
== END ==
LOC: M PLALAB 08:31
PROVIDERS: ATTEND Physician Assistant
DX: Z13.29 Encounter for screening for other suspected endocrine disorder (principal)

== ENCOUNTER → 2021-06-16 | Outpatient (REF) | payer BC | LOC: M LAB REF 17:19 | PROVIDERS: ATTEND Plastic Surgery Surgery of the Hand | DX: I78.1 Nevus, non-neoplastic (principal) ==

== ENCOUNTER → 2021-09-30 | Outpatient (REF) | payer BC | LOC: M LAB REF 08:58 | PROVIDERS: ATTEND Physician Assistant | DX: R50.9 Fever, unspecified (principal) ==